=== PATIENT | female | born 1945 | race Caucasian/White ===

== ENCOUNTER 2018-04-19 09:46 | Outpatient (CLI) | payer OTHER, SELFPAY ==
[2018-04-19] VITALS (7 sets, daily range): BP systolic 114–153; BP diastolic 64–98; PULSE 86–97; RESP 17–20; TEMP 36.7; O2SAT 94–98
--- NOTE | 2018-04-19 09:49 | DI.RAD.S_ITS ---
PROCEDURE: PAIN L INTERLAMINAR/CAUDAL INJ INDICATIONS: Lumbar stenosis FINDINGS: Fluoroscopic spot filming was performed to verify placement of spinal needles at the left L4-5 posterior epidural level(s), as labeled on the films. Appropriate location(s) of the needle tip(s) was confirmed by injection of iodinated contrast. IMPRESSION: Left posterior paramedian epidural injection positioning, for subsequent epidural steroid injection. Dictated by: Pranav Gongora M.D. on 04/19/2018 at 13:31 Approved by: Parnav Gongora M.D. on 04/19/2018 at 13:32
--- NOTE | 2018-04-19 10:27 | P.PCN_ITS ---
Procedures Date/Time Date of procedure: 04/19/18 Time of procedure: 11:02 General Procedure description: PROVIDER: Issa Crandall DO Operative Note PREOP DIAGNOSIS 1. HNP WITH RADICULAR FEATURES, 2. MULTILEVEL CENTRAL STENOSIS, POST OP DIAGNOSIS 1. HNP WITH RADICULAR FEATURES, 2. MULTILEVEL CENTRAL STENOSIS PROCEDURES 1. FLUORSCOPICALLY GUIDED CONTRAST CONTROLLED INTERLAMINAR EPIDURAL STEROID INJECTION -L4/5 PHYSICIAN: Issa Crandall DO INDICATIONs: Mary Ellen is referred by for treatment of Bilateral Foraminal Stenosis R> L LE symptoms. FINDINGS Multilevel Central Spinal Stenosis with Nerve Root Compression DESCRIPTION OF PROCEDURE Fluoroscopically guided, contrast-controlled L4/5 translaminar epidural steroid injection. Following denial of allergy and review of potential side effects and complications, including, but not necessarily limited to, infection, allergic reaction, local tissue breakdown, temporary as well as permanent nerve injury, paralysis, stroke and possible , the patient indicated that the patient understood and agreed to proceed. An informed consent document was signed by the patient, witnessed by a nurse, and placed in the patient's chart. Additionally, other treatment options including modalities, medications, and physical therapy were reviewed with the patient. Per the patient request, IV conscious sedation was administered via 5mg of Versed and 50mcg of Fentanyl to patient comfort. The patient's vital signs were monitored throughout the procedure by both the nurse and the physician without significant fluctuation. The patient remained conversant throughout the procedure. In the prone position, following sterile prep and drape of the lumbar region, the L4/5 translaminar space was identified fluoroscopically. The skin was anesthetized via a 25-gauge, 1.5-inch needle with 1% lidocaine solution. At this point, a 22-gauge short bevel spinal needle was atraumatically introduced and advanced under fluoroscopic guidance into the region of the L4/5 translaminar space. Depth was confirmed on lateral view. Radiological data, including multiple fluoroscopic views of the lumbar spine, reveal a spinal needle at the L4/5 translaminar space. Lateral views then show placement of the needle in the epidural space. Subsequent views show contrast material flowing superiorly and inferiorly in the epidural space. No vascular or intrathecal uptake is observed. At this point, using loss of resistance technique with saline and air, the epidural space was entered. This was confirmed following negative aspiration with injection of approximately 1.5 cc of Isovue 200, showing excellent epidural flow without vascular or intrathecal uptake. At this point, 1 cc of 1 % lidocaine solution combined with 3 cc or 20 mg of dexamethasone and 80mg Depo medrol was injected without incident. The patient was then transferred to the recovery area where they were observed for an appropriate period of time after the injection. The patient reported a VAS score of 6 prior to the procedure and a post-procedure VAS of 0. Total Fluoroscopy Time: 11.8 seconds Total Conscious Sedation Time: 24min POST OP INSTRUCTIONS The patient was provided a Pain Log to continue to record their response to the target-specific procedure prior to follow-up visit with their referring physician. Additionally, specific post-injection care instructions and a contact number to our office were provided if concerns arise regarding possible complications associated with the procedure are suspected. Issa Crandall DO Complications: none
[2018-04-19] MEDS: methylPREDNISolone acetate 80 MG/ML VIAL INJ (10:45)
[2018-04-19] MEDS: IOPAMIDOL 15 ML VIAL 3 ML INJ (10:45)
[2018-04-19] MEDS: MIDAZOLAM 5 MG/5 ML VIAL IV (10:45)
[2018-04-19] MEDS: BUPIVACAINE 0.25% (PF) 30 ML VIAL INJ (10:45)
[2018-04-19] MEDS: DEXAMETHASONE 10 MG/ML VIAL 20 MG INJ (10:45)
[2018-04-19] MEDS: fentaNYL 100 MCG/2 ML INJ 50 MCG IV (10:54)
== END 2018-04-19 11:40 ==
LOC: RAD 09:48
PROVIDERS: Visit Provider Physical Medicine & Rehabilitation
DX: M48.061 Spinal stenosis, lumbar region without neurogenic claudication (principal); M51.16 Intervertebral disc disorders with radiculopathy, lumbar region
CPT/HCPCS: 62323; 99152; J1040; J1100; J2250; J3010

== ENCOUNTER 2018-06-01 08:58 | Outpatient (CLI) | payer OTHER, SELFPAY ==
[2018-06-01] VITALS (8 sets, daily range): BP systolic 126–145; BP diastolic 62–97; PULSE 79–90; RESP 15–20; TEMP 36.2; O2SAT 95–97
--- NOTE | 2018-06-01 08:59 | DI.RAD.S_ITS ---
PROCEDURE: PAIN L/S TRANSFORAMINAL INJECT INDICATIONS: LUMBAR REGION SPINAL STENOSIS FINDINGS: Fluoroscopic spot filming was performed to verify placement of spinal needles at the left L5-S1 level(s), as labeled on the films. Appropriate location(s) of the needle tip(s) was confirmed by injection of iodinated contrast. IMPRESSION: Successful needle tip localization on the left L5-S1 for transforaminal epidural steroid injection. Dictated by: Pranav Gongora M.D. on 06/01/2018 at 13:32 Approved by: Pranav Gongora M.D. on 06/01/2018 at 13:32
--- NOTE | 2018-06-01 10:39 | P.PCN_ITS ---
Procedures Date/Time Date of procedure: 06/01/18 Time of procedure: 10:38 General Procedure description: PREOP DIAGNOSIS 1. FORMAINAL STENOSIS WITH LE SYMPTOMS POST OP DIAGNOSIS 1. FORMAINAL STENOSIS WITH LE SYMPTOMS PROCEDURES 1. FLUOROSCOPICALLY GUIDED CONTRAST CONTROLLED TRANSFORAMINAL EPIDURAL STEROID INJECTION - Left L5/S1 PHYSICIAN: Issa Crandall DO INDICATIONS: Mary Ellen is referred by Dr. Howard for treatment of Foraminal Stenosis with Right LE Symptoms FINDINGS Foraminal Nerve Root Compression secondary to disc disease and facet hypertrophy DESCRIPTION OF PROCEDURE: Following denial of allergy and review of potential side effects and complications, including, but not necessarily limited to, infection, allergic reaction, local tissue breakdown, stroke, temporary or permanent nerve injury, paralysis, and possible , the patient indicated that the patient understood and agreed to proceed. An informed consent document was signed by the patient, witnessed by a nurse, and placed in the patient's chart. Additionally, other treatment options including medications, modalities, and physical therapy were reviewed with the patient. After review of previous anaesthesic history and IV conscious sedation the patient was deemed safe to proceed with todays procedure with IV conscious sedation as ASA class II designation. Safety time-out was performed to confirm patient ID, procedure to be performed and site of procedure. IV sedation was accomplished with a combination of 3mg was administered by the RN after DO order , titrated to patient comfort during the course of the procedure while the patient remained responsive to all verbal commands In the prone position following sterile prep and drape of the lumbar region, the Left L5/S1 posterior neuroforamen was identified fluoroscopically. The skin was anesthetized via a 25-gauge 1.5-inch needle with 1% lidocaine solution. At this point, a 25-gauge 3.5-inch spinal needle was atraumatically introduced and advanced under fluoroscopic guidance through the posterior Left L5/S1 neuroforamen to approximately the anterior aspect of the canal. Depth was confirmed on lateral view. Following negative aspiration, injection of approximately 1.5 cc of Isovue 200 under live fluoroscopy in the AP view confirmed excellent flow along the nerve root, into the epidural space without vascular or intrathecal uptake observed Radiological data, including multiple fluoroscopic views of the lumbosacral spine, reveal a spinal needle at the Left L5/S1 posterior neuroforamen. Subsequent views show flow of contrast material flowing superiorly and inferiorly along the nerve root confirming epidural flow. Subsequently, a test dose of 1.5 cc of 1% lidocaine solution was administered and patient was observed for two minutes for signs or symptoms of complications , including abdominal pain, shortness of breath, bilateral upper or lower extremity weakness, nausea and vomiting, prior to steroid injection. At this point, a total of 3 cc or 20 mg of dexamethasone and 80mg Depo Medrol was injected without incident. The procedure tolerated the procedure well without signs or symptoms of complications prior to transfer to the recovery area continued monitoring without incident. The patient was then transferred to the recovery area where they were observed for an appropriate time after the injection. The patient reported a VAS score of 7 prior to the procedure and a post-procedure VAS of 0. Total Fluoroscopy Time: 20.9 seconds Total Conscious Sedation Time: 24min POST OP INSTRUCTIONS The patient was provided a Pain Log to continue to record their response to the target-specific procedure prior to follow-up visit with their referring physician. Additionally, specific post-injection care instructions and a contact number to our office were provided if concerns arise regarding possible complications associated with the procedure are suspected. Issa Crandall DO Complications: none
[2018-06-01] MEDS: MIDAZOLAM 5 MG/5 ML VIAL IV (10:56)
[2018-06-01] MEDS: methylPREDNISolone acetate 80 MG/ML VIAL INJ (10:57)
[2018-06-01] MEDS: IOPAMIDOL 15 ML VIAL 3 ML INJ (10:57)
[2018-06-01] MEDS: BUPIVACAINE 0.25% (PF) VIAL 2 ML INJ (10:57)
[2018-06-01] MEDS: DEXAMETHASONE 10 MG/ML VIAL 20 MG INJ (10:57)
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
== END 2018-06-01 12:17 ==
PROVIDERS: PCP Family Medicine; Visit Provider Physical Medicine & Rehabilitation
DX: M48.061 Spinal stenosis, lumbar region without neurogenic claudication (principal); M51.17 Intervertebral disc disorders with radiculopathy, lumbosacral region
CPT/HCPCS: 64483; 99152; J1040; J1100; J2250

== ENCOUNTER 2018-07-12 13:06 | Outpatient (CLI) | payer OTHER, SELFPAY ==
--- NOTE | 2018-07-12 13:07 | DI.RAD.S_ITS ---
PROCEDURE: PAIN L INTERLAMINAR/CAUDAL INJ INDICATIONS: spinal stenosis FINDINGS: Fluoroscopic spot filming was performed to verify placement of spinal needles at the L3 and L4 level(s), as labeled on the films. Appropriate location(s) of the needle tip(s) was confirmed by injection of iodinated contrast. IMPRESSION: Fluoroscopy for pain management. Dictated by: Teddy Boyle M.D. on 07/12/2018 at 16:16 Approved by: Teddy Boyle M.D. on 07/12/2018 at 16:17
[2018-07-12 13:35] VITALS: BP 170/97; PULSE 103; RESP 22; TEMP 36.7; O2SAT 96
--- NOTE | 2018-07-12 13:40 | PM.PROC.1 ---
Procedures Date/Time Date of procedure: 07/12/18 Time of procedure: 13:40 General Procedure description: POST OP DIAGNOSIS 1. HNP WITH RADICULAR FEATURES, 2. MULTILEVEL CENTRAL STENOSIS, PROCEDURES 1. FLUORSCOPICALLY GUIDED CONTRAST CONTROLLED INTERLAMINAR EPIDURAL STEROID INJECTION - L3/4 PHYSICIAN: DO CONCHA Addison Mary Ellen is referred by for treatment of Bilateral Foraminal Stenosis L>R LE symptoms. FINDINGS Multilevel Central Spinal Stenosis with Nerve Root Compression DESCRIPTION OF PROCEDURE Fluoroscopically guided, contrast-controlled L3/4 translaminar epidural steroid injection. Following denial of allergy and review of potential side effects and complications, including, but not necessarily limited to, infection, allergic reaction, local tissue breakdown, temporary as well as permanent nerve injury, paralysis, stroke and possible , the patient indicated that the patient understood and agreed to proceed. An informed consent document was signed by the patient, witnessed by a nurse, and placed in the patient's chart. Additionally, other treatment options including modalities, medications, and physical therapy were reviewed with the patient. After review of previous anaesthesic history and IV conscious sedation the patient was deemed safe to proceed with todays procedure with IV conscious sedation as ASA class II designation. Safety time-out was performed to confirm patient ID, procedure to be performed and site of procedure. IV sedation was deemed unnecessary and thus not administered by the RN to patient comfort during the course of the procedure while the patient remained responsive to all verbal commands. In the prone position, following sterile prep and drape of the lumbar region, the L3/4 translaminar space was identified fluoroscopically. The skin was anesthetized via a 25-gauge, 1.5-inch needle with 1% lidocaine solution. At this point, a 22-gauge short bevel spinal needle was atraumatically introduced and advanced under fluoroscopic guidance into the region of the L3/4 translaminar space. Depth was confirmed on lateral view. Radiological data, including multiple fluoroscopic views of the lumbar spine, reveal a spinal needle at the L3/4 translaminar space. Lateral views then show placement of the needle in the epidural space. Subsequent views show contrast material flowing superiorly and inferiorly in the epidural space. No vascular or intrathecal uptake is observed. At this point, using loss of resistance technique with saline and air, the epidural space was entered. This was confirmed following negative aspiration with injection of approximately 1.5 cc of Isovue 200, showing excellent epidural flow without vascular or intrathecal uptake. At this point, 1 cc of 1% lidocaine solution combined with 3 cc or 20 mg of dexamethasone and 80mg Depo medrol was injected without incident. The patient tolerated the procedure well without signs or symptoms of complications prior to transfer to the recovery area continued monitoring without incident. The patient was then transferred to the recovery area where they were observed for an appropriate period of time after the injection. The patient reported a VAS score of 6 prior to the procedure and a post-procedure VAS of 0. Total Fluoroscopy Time: 11.8 seconds Total Conscious Sedation Time: 0min POST OP INSTRUCTIONS The patient was provided a Pain Log to continue to record their response to the target-specific procedure prior to follow-up visit with their referring physician. Additionally, specific post-injection care instructions and a contact number to our office were provided if concerns arise regarding possible complications associated with the procedure are suspected. Issa Crandall DO
--- NOTE | 2018-07-12 13:43 | P.PCN_ITS ---
Procedures Date/Time Date of procedure: 07/12/18 Time of procedure: 13:40 General Procedure description: POST OP DIAGNOSIS 1. HNP WITH RADICULAR FEATURES, 2. MULTILEVEL CENTRAL STENOSIS, PROCEDURES 1. FLUORSCOPICALLY GUIDED CONTRAST CONTROLLED INTERLAMINAR EPIDURAL STEROID INJECTION - L3/4 PHYSICIAN: DO CONCHA Addison Mary Ellen is referred by for treatment of Bilateral Foraminal Stenosis L> R LE symptoms. FINDINGS Multilevel Central Spinal Stenosis with Nerve Root Compression DESCRIPTION OF PROCEDURE Fluoroscopically guided, contrast-controlled L3/4 translaminar epidural steroid injection. Following denial of allergy and review of potential side effects and complications, including, but not necessarily limited to, infection, allergic reaction, local tissue breakdown, temporary as well as permanent nerve injury, paralysis, stroke and possible , the patient indicated that the patient understood and agreed to proceed. An informed consent document was signed by the patient, witnessed by a nurse, and placed in the patient's chart. Additionally, other treatment options including modalities, medications, and physical therapy were reviewed with the patient. After review of previous anaesthesic history and IV conscious sedation the patient was deemed safe to proceed with todays procedure with IV conscious sedation as ASA class II designation. Safety time-out was performed to confirm patient ID, procedure to be performed and site of procedure. IV sedation was deemed unnecessary and thus not administered by the RN to patient comfort during the course of the procedure while the patient remained responsive to all verbal commands. In the prone position, following sterile prep and drape of the lumbar region, the L3/4 translaminar space was identified fluoroscopically. The skin was anesthetized via a 25-gauge, 1.5-inch needle with 1% lidocaine solution. At this point, a 22-gauge short bevel spinal needle was atraumatically introduced and advanced under fluoroscopic guidance into the region of the L3/4 translaminar space. Depth was confirmed on lateral view. Radiological data, including multiple fluoroscopic views of the lumbar spine, reveal a spinal needle at the L3/4 translaminar space. Lateral views then show placement of the needle in the epidural space. Subsequent views show contrast material flowing superiorly and inferiorly in the epidural space. No vascular or intrathecal uptake is observed. At this point, using loss of resistance technique with saline and air, the epidural space was entered. This was confirmed following negative aspiration with injection of approximately 1.5 cc of Isovue 200, showing excellent epidural flow without vascular or intrathecal uptake. At this point, 1 cc of 1 % lidocaine solution combined with 3 cc or 20 mg of dexamethasone and 80mg Depo medrol was injected without incident. The patient tolerated the procedure well without signs or symptoms of complications prior to transfer to the recovery area continued monitoring without incident. The patient was then transferred to the recovery area where they were observed for an appropriate period of time after the injection. The patient reported a VAS score of 6 prior to the procedure and a post- procedure VAS of 0. Total Fluoroscopy Time: 11.8 seconds Total Conscious Sedation Time: 0min POST OP INSTRUCTIONS The patient was provided a Pain Log to continue to record their response to the target-specific procedure prior to follow-up visit with their referring physician. Additionally, specific post-injection care instructions and a contact number to our office were provided if concerns arise regarding possible complications associated with the procedure are suspected. Issa Crandall DO
[2018-07-12 13:48] VITALS: BP 143/59; PULSE 103; RESP 16; O2SAT 93
[2018-07-12 13:51] VITALS: O2SAT 97
[2018-07-12 13:54] VITALS: BP 147/102; PULSE 89; RESP 18; O2SAT 96
[2018-07-12] MEDS: methylPREDNISolone acetate 80 MG/ML VIAL INJ (13:58)
[2018-07-12] MEDS: DEXAMETHASONE 10 MG/ML VIAL 20 MG INJ (13:58)
[2018-07-12] MEDS: IOPAMIDOL 15 ML VIAL 3 ML INJ (13:58)
[2018-07-12] MEDS: BUPIVACAINE 0.25% (PF) VIAL 2 ML INJ (13:58)
[2018-07-12 13:59] VITALS: BP 150/103; PULSE 92; RESP 18; O2SAT 97
[2018-07-12 14:05] VITALS: BP 142/87; PULSE 91; RESP 20; O2SAT 95
--- NOTE | 2018-07-13 13:23 | PC.NURSE ---
post follow up call made pt reports doing well and that her pain is relieved.
== END 2018-07-12 14:45 ==
PROVIDERS: PCP Family Medicine; Visit Provider Physical Medicine & Rehabilitation
DX: M51.16 Intervertebral disc disorders with radiculopathy, lumbar region (principal); M51.26 Other intervertebral disc displacement, lumbar region; M96.1 Postlaminectomy syndrome, not elsewhere classified; M48.061 Spinal stenosis, lumbar region without neurogenic claudication
CPT/HCPCS: 62323; J1040; J1100

== ENCOUNTER → 2018-09-16 08:53 | Outpatient (CLI) | payer OTHER, SELFPAY ==
--- NOTE | 2018-09-16 08:55 | DI.MRI.S_ITS ---
PROCEDURE: MR LUMBAR SPINE WO CON INDICATIONS: OTHER INTERVERTABRAL DISK DISPLACEMENT,LUMBAR REGION TECHNIQUE: Noncontrast sagittal T1 spin echo and T2 fast echo, sagittal STIR, axial T1 and T2 fast spin echo through the lumbar spine. In cases with scoliosis, additional coronal T2 fast spin echo may be performed. COMPARISON: [facility], MR, MR LUMBAR SPINE WO CON, 07/02/2017, 15:11. [facility], CR, XR LUMBAR SPINE WITH OBLIQUES, 09/16/2017, 11:55. FINDINGS: Image quality: Excellent. Alignment and Curvature: 5 lumbar type vertebral bodies are present by plain film. There is mild, grade 1 retrolisthesis of L1 on L2. Bone Marrow: Marrow is of normal overall signal. No acute vertebral body compression fractures. There is mild reactive signal within the endplates adjacent to the L1-L2, L2-L3, and L5-S1 intervertebral discs. Moderate reactive signal within the endplate adjacent to the L3-L4 and L4-L5 intervertebral discs. Spinal Cord: Conus medullaris terminates at the L1-L2 disc space level. Visualized cord demonstrates normal signal and size. Paraspinous Soft Tissues: No paravertebral masses. Bilateral renal cysts are present. L1-L2: Moderate disc height loss and desiccation. Moderate diffuse disc bulge with superimposed central disc extrusion which extends inferiorly within the anterior epidural space. There is also a superimposed left far lateral broad-based protrusion, as before Mild bilateral facet and ligamentum hypertrophy. Mild epidural lipomatosis. There is increased, moderate canal stenosis. No change in mild bilateral foraminal stenosis. L2-L3: Moderate disc desiccation. Mild disc height loss. Mild diffuse disc bulge with superimposed small broad-based left posterolateral protrusion. Mild bilateral facet and ligamentum flavum hypertrophy. Mild epidural lipomatosis. Mild canal stenosis. Mild left greater than right foraminal stenosis. No change. L3-L4: Severe disc height loss and desiccation. Moderate diffuse disc bulge/osteophyte. Moderate bilateral facet hypertrophy. There is increased, moderate to severe canal stenosis. There is no change in moderate bilateral foraminal stenosis. L4-L5: Severe disc height loss and desiccation. Mild diffuse disc bulge/osteophyte with superimposed right far lateral protrusion/osteophyte. Moderate facet and ligamentum flavum hypertrophy bilaterally. Moderate canal stenosis. Moderate bilateral foraminal stenosis. No change. L5-S1: Mild disc height loss and desiccation. Mild diffuse disc bulge. Moderate bilateral facet hypertrophy. Mild canal stenosis. Mild bilateral foraminal stenosis. No change. IMPRESSION: 1. Multilevel degenerative disc and facet disease, as well as ligamentum flavum hypertrophy and epidural lipomatosis. 2. Multilevel canal stenoses, worse at L1-L2 and L4-L5, where there is moderate canal stenosis, and at L3-L4, where there is moderate to severe canal stenosis. 3. Multilevel foraminal stenoses, worst at L3-L4 and L4-L5 bilaterally where there are moderate foraminal stenoses present. Dictated by: Ruby Workman M.D. on 09/16/2018 at 10:58 Approved by: Ruby Workman M.D. on 09/16/2018 at 11:04
== END ==
PROVIDERS: Family Provider Family Medicine; PCP Family Medicine; Visit Provider Physical Medicine & Rehabilitation
DX: M51.26 Other intervertebral disc displacement, lumbar region (principal); M51.36 Other intervertebral disc degeneration, lumbar region; M51.37 Other intervertebral disc degeneration, lumbosacral region; M48.061 Spinal stenosis, lumbar region without neurogenic claudication; M48.07 Spinal stenosis, lumbosacral region; E88.2 Lipomatosis, not elsewhere classified
CPT/HCPCS: 72148

== ENCOUNTER 2019-01-10 13:48 | Outpatient (CLI) | payer OTHER, SELFPAY ==
[2019-01-10] VITALS (9 sets, daily range): BP systolic 126–139; BP diastolic 71–94; PULSE 85–93; RESP 16–19; O2SAT 93–96
--- NOTE | 2019-01-10 13:48 | DI.RAD.S_ITS ---
PROCEDURE: PAIN L INTERLAMINAR/CAUDAL INJ INDICATIONS: L5-S1 tl GABBY FINDINGS: Fluoroscopic spot filming was performed to verify placement of spinal needles at the L5-S1 level(s), as labeled on the films. Appropriate location(s) of the needle tip(s) was confirmed by injection of iodinated contrast. Dictated by: Isaias Islas M.D. on 01/10/2019 at 16:08 Approved by: Isaias Islas M.D. on 01/10/2019 at 16:09
[2019-01-10] MEDS: MIDAZOLAM 5 MG/5 ML VIAL IV (14:37)
[2019-01-10] MEDS: IOPAMIDOL 15 ML VIAL 3 ML INJ (14:41)
[2019-01-10] MEDS: DEXAMETHASONE 10 MG/ML VIAL 20 MG INJ (14:41)
[2019-01-10] MEDS: BUPIVACAINE 0.25% (PF) VIAL 2 ML INJ (14:42)
--- NOTE | 2019-01-10 14:52 | P.PCN_ITS ---
Procedures Date/Time Date of procedure: 01/10/19 Time of procedure: 14:51 General Procedure description: PROVIDER: Issa Crandall DO Operative Note PREOP DIAGNOSIS 1. HNP WITH RADICULAR FEATURES, 2. MULTILEVEL CENTRAL STENOSIS, POST OP DIAGNOSIS 1. HNP WITH RADICULAR FEATURES, 2. MULTILEVEL CENTRAL STENOSIS, PROCEDURES 1. FLUORSCOPICALLY GUIDED CONTRAST CONTROLLED INTERLAMINAR EPIDURAL STEROID INJECTION - L5/S1 PHYSICIAN: Issa Crandall DO INDICATIONS Mary Ellen is referred by Dr. Howard for treatment of Bilateral Foraminal Stenosis L>R LE symptoms. FINDINGS Multilevel Central Spinal Stenosis with Nerve Root Compression DESCRIPTION OF PROCEDURE Fluoroscopically guided, contrast-controlled L5/S1 translaminar epidural steroid injection. Following denial of allergy and review of potential side effects and complications, including, but not necessarily limited to, infection, allergic reaction, local tissue breakdown, temporary as well as permanent nerve injury, paralysis, stroke and possible , the patient indicated that the patient understood and agreed to proceed. An informed consent document was signed by the patient, witnessed by a nurse, and placed in the patient's chart. Additionally, other treatment options including modalities, medications, and physical therapy were reviewed with the patient. After review of previous anaesthesic history and IV conscious sedation the patient was deemed safe to proceed with todays procedure with IV conscious sedation as ASA class II designation. Safety time-out was performed to confirm patient ID, procedure to be performed and site of procedure. IV sedation was accomplished with a combination of 3mg of Versed administered by the RN after DO order, titrated to patient comfort during the course of the procedure while the patient remained responsive to all verbal commands. In the prone position, following sterile prep and drape of the lumbar region, the L5/S1 translaminar space was identified fluoroscopically. The skin was anesthetized via a 25-gauge, 1.5-inch needle with 1% lidocaine solution. At this point, a 22-gauge short bevel spinal needle was atraumatically introduced and advanced under fluoroscopic guidance into the region of the L5/S1 burgos slaminar space. Depth was confirmed on lateral view. Radiological data, including multiple fluoroscopic views of the lumbar spine, reveal a spinal needle at the L5/S1 translaminar space. Lateral views then show placement of the needle in the epidural space. Subsequent views show contrast material flowing superiorly and inferiorly in the epidural space. No vascular or intrathecal uptake is observed. At this point, using loss of resistance technique with saline and air, the epidural space was entered. This was confirmed following negative aspiration with injection of approximately 1.5 cc of Isovue 200, showing excellent epidural flow without vascular or intrathecal uptake. At this point, 1 cc of 1% lidocaine solution combined with 2cc or 20mg of dexamethasone was injected without incident. The patent tolerated the procedure without signs of symptoms of complications prior to transfer to the recovery area for further monitoring. The patient was then transferred to the recovery area where they were observed for an appropriate period of time after the injection. The patient reported a VAS score of 6 prior to the procedure and a post-procedure VAS of 0. Total Fluoroscopy Time: 11.8 seconds Total Conscious Sedation Time: 24min POST OP INSTRUCTIONS The patient was provided a Pain Log to continue to record their response to the target-specific procedure prior to follow-up visit with their referring physician. Additionally, specific post-injection care instructions and a contact number to our office were provided if concerns arise regarding possible complications associated with the procedure are suspected. Issa Crandall DO Complications: none
--- NOTE | 2019-01-10 15:17 | PC.NURSE ---
Pt returned from post procedure via wheelchair awake and alert, able to move with standby assist to chair from w/c. Resumed monitoring from ANTONIO HASTINGS.
--- NOTE | 2019-01-11 15:35 | PC.NURSE ---
FOLLOW UP CALLED MADE. LEFT VOICE MSG WITH CLINIC NUMBER IN CASE OF QUESTIONS/CONCERNS.
== END 2019-01-10 15:13 ==
LOC: RAD 13:48
PROVIDERS: Family Provider Family Medicine; PCP Family Medicine; Visit Provider Physical Medicine & Rehabilitation
DX: M51.17 Intervertebral disc disorders with radiculopathy, lumbosacral region (principal); M48.07 Spinal stenosis, lumbosacral region; M48.061 Spinal stenosis, lumbar region without neurogenic claudication; M96.1 Postlaminectomy syndrome, not elsewhere classified
CPT/HCPCS: 62323; 99152; J1100; J2250

== ENCOUNTER → 2019-04-26 13:59 | Outpatient (CLI) | payer OTHER, SELFPAY ==
--- NOTE | 2019-04-26 14:04 | DI.RAD.S_ITS ---
PROCEDURE: XR LUMBAR SPINE MIN 4V INDICATIONS: Lumbar radiculopathy status post laminectomy TECHNIQUE: 5 views of the lumbar spine were acquired. COMPARISON: [facility] SHAUNA Quan, XR LUMBAR SPINE WITH OBLIQUES, 09/16/2017, 11:55. FINDINGS: Bones: No fracture or focal osseous destruction. Straightening of the normal lordotic curvature. Severe diffuse narrowing of lumbar disc spaces. Mild levocurvature as before Soft tissues: Overlying bowel gas pattern is normal. No suspicious soft tissue calcifications. Oblique images: No pars defects. IMPRESSION: Interval progression in diffuse lumbar spondylosis since 09/16/17. Multilevel facet arthropathy. Mild levocurvature as before Dictated by: Isaias Islas M.D. on 04/26/2019 at 16:45 Approved by: Isaisa Islas M.D. on 04/26/2019 at 16:47
== END ==
PROVIDERS: Family Provider Family Medicine; PCP Family Medicine; Visit Provider Physical Medicine & Rehabilitation
DX: M96.1 Postlaminectomy syndrome, not elsewhere classified (principal); M51.26 Other intervertebral disc displacement, lumbar region; M47.26 Other spondylosis with radiculopathy, lumbar region
CPT/HCPCS: 72110

== ENCOUNTER 2019-05-02 14:12 | Outpatient (CLI) | payer OTHER, SELFPAY ==
[2019-05-02] VITALS (7 sets, daily range): BP systolic 122–136; BP diastolic 32–81; PULSE 74–89; RESP 16–18; TEMP 36.6; O2SAT 92–100
--- NOTE | 2019-05-02 14:13 | DI.RAD.S_ITS ---
PROCEDURE: PAIN L/S TRANSFORAMINAL INJECT INDICATIONS: Left L1-2 transforaminal GABBY FINDINGS: Fluoroscopic spot filming was performed to verify placement of spinal needles at the T12-L1 level(s), as labeled on the films. Appropriate location(s) of the needle tip(s) was confirmed by injection of iodinated contrast. IMPRESSION: Fluoroscopy for pain management. Dictated by: Teddy Boyle M.D. on 05/05/2019 at 18:35 Approved by: Teddy Boyle M.D. on 05/05/2019 at 18:36
[2019-05-02] MEDS: fentaNYL 100 MCG/2 ML INJ 50 MCG IV (15:24)
[2019-05-02] MEDS: MIDAZOLAM 5 MG/5 ML VIAL IV (15:24)
[2019-05-02] MEDS: IOPAMIDOL 15 ML VIAL 3 ML INJ (15:29)
[2019-05-02] MEDS: BETAMETHASONE 30 MG/5 ML MDV 12 MG INJ (15:29)
[2019-05-02] MEDS: BUPIVACAINE 0.5% (PF) VIAL 2 ML INJ (15:30)
--- NOTE | 2019-05-02 15:32 | PC.NURSE ---
ASSISTING PT OFF TABLE AND TRANSPORTING TO POST PROC AREA IN STABLE CONDITION
--- NOTE | 2019-05-02 15:40 | P.PCN_ITS ---
Procedures Date/Time Date of procedure: 05/02/19 Time of procedure: 15:38 General Procedure description: Operative Note PREOP DIAGNOSIS 1. FORAMINAL STENOSIS WITH LE SYMPTOMS, POST OP DIAGNOSIS 1. FORAMINAL STENOSIS WITH LE SYMPTOMS, PROCEDURES 1. FLUOROSCOPICALLY GUIDED CONTRAST CONTROLLED TRANSFORAMINAL EPIDURAL STEROID INJECTION - LEFT L1/2 TFESI SURGEON: Isas Crandall, DO INDICATIONS Mary Ellen is referred by Dr. Howard for treatment of Foraminal Stenosis with left LE Symptoms FINDINGS Foraminal Nerve Root Compression secondary to disc disease and facet hypertrophy DESCRIPTION OF PROCEDURE Following review of allergy and review of potential side effects and complications, including, but not necessarily limited to, infection, allergic reaction, local tissue breakdown, stroke, temporary or permanent nerve injury, paralysis, and possible , the patient indicated that the patient understood and agreed to proceed. An informed consent document was signed by the patient, witnessed by a nurse, and placed in the patient's chart. Additionally, other treatment options including medications, modalities, and physical therapy were reviewed with the patient. After review of previous anaesthesic history and IV conscious sedation the patient was deemed safe to proceed with todays procedure with IV conscious sedation as ASA class II designation. Safety time-out was performed to confirm patient ID, procedure to be performed and site of procedure. IV sedation was accomplished with a combination of 5mg of Versed and 50mcg of Fentanyl was administered by the RN after DO order, titrated to patient comfort during the c ourse of the procedure while the patient remained responsive to all verbal commands In the prone position following sterile prep and drape of the lumbar region, the left L1/2 posterior neuroforamen was identified fluoroscopically. The skin was anesthetized via a 25-gauge 1.5-inch needle with 1% lidocaine solution. At this point, a 25-gauge 3.5-inch spinal needle was atraumatically introduced and advanced under fluoroscopic guidance through the posterior left L1/2 neuroforamen to approximately the anterior aspect of the canal. Depth was confirmed on lateral view. Following negative aspiration, injection of approximately 1.5 cc of Isovue 200 under live fluoroscopy in the AP view confirmed excellent flow along the nerve root, into the epidural space without vascular or intrathecal uptake observed Radiological data, including multiple fluoroscopic views of the lumbosacral spine, reveal a spinal needle at the left L1/2 posterior neuroforamen. Subsequent views show flow of contrast material flowing superiorly and inferiorly along the nerve root confirming epidural flow. Subsequently, a test dose of 1.5 cc of 1% lidocaine solution was administered and patient was observed for two minutes for signs or symptoms of complications, including abdominal pain, shortness of breath, bilateral upper or lower extremity weakness, nausea and vomiting, prior to steroid injection. At this point, a total of 3cc or 18mg of betamethasone was injected without incident. The patient tolerated the procedure well without signs or symptoms of complications prior to transfer to the recovery area continued monitoring without incident. The patient was then transferred to the recovery area where they were observed for an appropriate time after the injection. The patient reported a VAS score of 7 prior to the procedure and a post-procedure VAS of 0. Total Fluoroscopy Time: 24.2 seconds Total Conscious Sedation Time: 24min POST OP INSTRUCTIONS The patient was provided a Pain Log to continue to record their response to the target-specific procedure prior to follow-up visit with their referring physician. Additionally, specific post-injection care instructions and a contact number to our office were provided if concerns arise regarding possible complications associated with the procedure are suspected. Issa Crandall DO Complications: none Complications: none
--- NOTE | 2019-05-02 15:45 | PC.NURSE ---
Pt returned from procedure awake and alert, able to transfer from w/c to chair without difficulty and standby assist. Resumed monitoring from Ana HASTINGS.
== END 2019-05-02 15:58 ==
LOC: RAD 14:12
PROVIDERS: Family Provider Family Medicine; PCP Family Medicine; Visit Provider Physical Medicine & Rehabilitation
DX: M48.061 Spinal stenosis, lumbar region without neurogenic claudication (principal); M51.16 Intervertebral disc disorders with radiculopathy, lumbar region
CPT/HCPCS: 64479; 64483; 99152; J0702; J2250; J3010

== ENCOUNTER 2019-09-14 07:06 | Outpatient (CLI) | payer OTHER, SELFPAY ==
--- NOTE | 2019-09-14 07:07 | DI.RAD.S_ITS ---
PROCEDURE: PAIN L/S TRANSFORAMINAL INJECT INDICATIONS: SPINAL STENOSIS FINDINGS: Fluoroscopic spot filming was performed to verify placement of spinal needles at the L3-L4 level(s), as labeled on the films. Appropriate location(s) of the needle tip(s) was confirmed by injection of iodinated contrast. IMPRESSION: Fluoroscopy for pain management. Dictated by: Teddy Boyle M.D. on 09/14/2019 at 10:45 Approved by: Teddy Boyle M.D. on 09/14/2019 at 10:45
[2019-09-14 07:37] VITALS: BP 135/83; PULSE 83; RESP 18; TEMP 35.7; O2SAT 95
[2019-09-14 08:17] VITALS: BP 148/78; PULSE 70; RESP 16; O2SAT 94
[2019-09-14] MEDS: fentaNYL 100 MCG/2 ML INJ 50 MCG IV (08:19)
[2019-09-14] MEDS: MIDAZOLAM 5 MG/5 ML VIAL IV (08:19)
[2019-09-14 08:22] VITALS: BP 133/74; PULSE 80; RESP 16; O2SAT 95
[2019-09-14] MEDS: IOPAMIDOL 15 ML VIAL 3 ML INJ (08:24)
[2019-09-14] MEDS: DEXAMETHASONE 10 MG/ML VIAL 20 MG INJ (08:25)
[2019-09-14] MEDS: BUPIVACAINE 0.5% (PF) VIAL 2 ML INJ (08:25)
[2019-09-14] MEDS: BETAMETHASONE 30 MG/5 ML MDV 6 MG INJ (08:25)
[2019-09-14 08:27] VITALS: BP 136/81; PULSE 83; RESP 16; O2SAT 96
--- NOTE | 2019-09-14 08:29 | PC.NURSE ---
ASSISTING PT OFF TABLE AND TRANSPORTING TO POST PROC AREA IN STABLE CONDITION.
[2019-09-14 08:35] VITALS: BP 133/72; PULSE 82; RESP 16; O2SAT 96
[2019-09-14 08:40] VITALS: BP 128/76; PULSE 83; RESP 16; O2SAT 96
--- NOTE | 2019-09-14 08:41 | P.PCN_ITS ---
Procedures Date/Time Date of procedure: 09/14/19 Time of procedure: 08:41 General Procedure description: PROVIDER: Issa Crandall DO Operative Note PREOP DIAGNOSIS 1. FORAMINAL STENOSIS WITH LE SYMPTOMS, POST OP DIAGNOSIS 1. FORAMINAL STENOSIS WITH LE SYMPTOMS, PROCEDURES 1. FLUOROSCOPICALLY GUIDED CONTRAST CONTROLLED TRANSFORAMINAL EPIDURAL STEROID INJECTION - LEFT L3/4 TFESI SURGEON: Issa Crandall, DO INDICATIONS Mary Ellen is referred by Dr. Howard for treatment of Foraminal Stenosis with left LE Symptoms FINDINGS Foraminal Nerve Root Compression secondary to disc disease and facet hypertrophy DESCRIPTION OF PROCEDURE Following review of allergy and review of potential side effects and complications, including, but not necessarily limited to, infection, allergic reaction, local tissue breakdown, stroke, temporary or permanent nerve injury, paralysis, and possible , the patient indicated that the patient understood and agreed to proceed. An informed consent document was signed by the patient, witnessed by a nurse, and placed in the patient's chart. Additionally, other treatment options including medications, modalities, and physical therapy were reviewed with the patient. After review of previous anaesthesic history and IV conscious sedation the patient was deemed safe to proceed with todays procedure with IV conscious sedation as ASA class II designation. Safety time-out was performed to confirm patient ID, procedure to be performed and site of procedure. IV sedation was accomplished with a combination of 2mg of Versed and 50mcg of Fentanyl was administered by the RN after DO order, titrated to patient comfort during the course of the procedure while the patient remained responsive to all verbal commands In the prone position following sterile prep and drape of the lumbar region, the left L3/4 posterior neuroforamen was identified fluoroscopically. The skin was anesthetized via a 25-gauge 1.5-inch needle with 1% lidocaine solution. At this point, a 22-gauge 5-inch spinal needle was atraumatically introduced and advanced under fluoroscopic guidance through the posterior left L3/4 neuroforamen to approximately the anterior aspect of the canal. Depth was confirmed on lateral view. Following negative aspiration, injection of approximately 1.5 cc of Isovue 200 under live fluoroscopy in the AP view confirmed excellent flow along the nerve root, into the epidural space without v ascular or intrathecal uptake observed Radiological data, including multiple fluoroscopic views of the lumbosacral spine, reveal a spinal needle at the left L3/4 posterior neuroforamen. Subsequent views show flow of contrast material flowing superiorly and inferiorly along the nerve root confirming epidural flow. Subsequently, a test dose of 1.5 cc of 1% lidocaine solution was administered and patient was observed for two minutes for signs or symptoms of complications, including abdominal pain, shortness of breath, bilateral upper or lower extremity weakness, nausea and vomiting, prior to steroid injection. At this point, a total of 3cc or 20mg of dexamethasone and 6mg betamethasone was injected without incident. The patient tolerated the procedure well without signs or symptoms of complications prior to transfer to the recovery area continued monitoring without incident. The patient was then transferred to the recovery area where they were observed for an appropriate time after the injection. The patient reported a VAS score of 7 prior to the procedure and a post-procedure VAS of 0. Total Fluoroscopy Time: 24.2 seconds Total Conscious Sedation Time: 24min POST OP INSTRUCTIONS The patient was provided a Pain Log to continue to record their response to the target-specific procedure prior to follow-up visit with their referring physician. Additionally, specific post-injection care instructions and a contact number to our office were provided if concerns arise regarding possible complications associated with the procedure are suspected. Issa Crandall, Complications: none
== END 2019-09-14 09:10 | disposition home or self-care (01) ==
LOC: RAD 07:07
PROVIDERS: Family Provider Family Medicine; PCP Family Medicine; Visit Provider Physical Medicine & Rehabilitation
DX: M48.061 Spinal stenosis, lumbar region without neurogenic claudication (principal); M51.16 Intervertebral disc disorders with radiculopathy, lumbar region
CPT/HCPCS: 64483; 99152; J0702; J1100; J2250; J3010

== ENCOUNTER → 2020-12-02 09:10 | Outpatient (CLI) | payer OTHER, SELFPAY ==
--- NOTE | 2020-12-02 09:13 | DI.RAD.S_ITS ---
PROCEDURE: XR LUMBAR SPINE MIN 4V INDICATIONS: UPDATE IMAGING TECHNIQUE: 5 views of the lumbar spine were acquired, including bilateral oblique views. COMPARISON: [facility], CR, XR LUMBAR SPINE MIN 4V, 04/26/2019, 14:05. FINDINGS: Bones: 5 nonrib-bearing vertebrae are present. There is normal bony alignment. No vertebral body compression fractures. No suspicious bony lesions. The pattern of moderate to moderately severe degenerative disc disease at L1-L2, L3-L4 and L4-L5 is again noted without definite interval worsening from April of 2019. Facet osteoarthritis appears mildly more prominent from L3 inferiorly with reference to the prior study. Significant spinal and foraminal stenosis at the levels discussed above likely is present, and to a greater degree than in 2019, as a result. Soft tissues: Overlying bowel gas pattern is normal. No suspicious soft tissue calcifications. Oblique images: No pars defects. IMPRESSION: Worsening degenerative changes as discussed comprised of predominantly worsening facet osteoarthritis from L3 inferiorly. Degenerative disc disease appears stable over time with reference to the prior study from 2019 as noted above. Note is made of a spinal stimulator electrode plate and control device, partially visualized, with control device overlying the left iliac bone. Bilateral hip arthroplasty procedures have been performed. Dictated by: Pranav Gongora M.D. on 12/02/2020 at 9:54 Approved by: Pranav Gongora M.D. on 12/02/2020 at 9:57
== END ==
PROVIDERS: Family Provider Family Medicine; PCP Family Medicine; Referring Provider Physical Medicine & Rehabilitation; Visit Provider Physical Medicine & Rehabilitation
DX: M48.061 Spinal stenosis, lumbar region without neurogenic claudication (principal); M51.26 Other intervertebral disc displacement, lumbar region; M47.816 Spondylosis without myelopathy or radiculopathy, lumbar region; M51.36 Other intervertebral disc degeneration, lumbar region; M96.1 Postlaminectomy syndrome, not elsewhere classified; G45.9 Transient cerebral ischemic attack, unspecified; F06.4 Anxiety disorder due to known physiological condition; Z96.643 Presence of artificial hip joint, bilateral; Z96.82 Presence of neurostimulator; Z96.653 Presence of artificial knee joint, bilateral
CPT/HCPCS: 72110; 99215

== ENCOUNTER → 2021-02-10 12:56 | Outpatient (CLI) | payer OTHER, SELFPAY ==
[2021-02-10 17:56] LABS: COVID19 -Nasal RAPID Negative (Negative)
== END ==
PROVIDERS: Family Provider Family Medicine; PCP Family Medicine; Visit Provider Physical Medicine & Rehabilitation
DX: Z01.812 Encounter for preprocedural laboratory examination (principal); Z20.822 Contact with and (suspected) exposure to COVID-19
CPT/HCPCS: 87635; C9803

== ENCOUNTER 2021-02-11 11:48 | Outpatient (CLI) | payer OTHER, SELFPAY ==
[2021-02-11] VITALS (7 sets, daily range): BP systolic 113–128; BP diastolic 55–75; PULSE 87–92; RESP 14–19; TEMP 36.1; O2SAT 94–99
--- NOTE | 2021-02-11 11:53 | DI.RAD.S_ITS ---
PROCEDURE: PAIN L INTERLAMINAR/CAUDAL INJ INDICATIONS: SPONDYLOSIS COMPARISON: [facility], MR, MR LUMBAR SPINE WITHOUT CONTRAST, 01/13/2021, 13:12. [facility], CR, XR LUMBAR SPINE MIN 4V, 12/02/2020, 9:18. FINDINGS: Fluoroscopic spot filming was performed to verify placement of spinal needles at the L3-L4 level(s), as labeled on the films. Appropriate location(s) of the needle tip(s) was confirmed by injection of iodinated contrast. IMPRESSION: Fluoroscopy for pain management. Dictated by: Teddy Boyle M.D. on 02/11/2021 at 14:48 Approved by: Teddy Boyle M.D. on 02/11/2021 at 14:49
[2021-02-11] MEDS: MIDAZOLAM 5 MG/5 ML VIAL IV (13:42)
[2021-02-11] MEDS: BUPIVACAINE 0.25% (PF) VIAL 2 ML INJ (13:44)
[2021-02-11] MEDS: methylPREDNISolone acetate 80 MG/ML VIAL INJ (13:45)
[2021-02-11] MEDS: DEXAMETHASONE 10 MG/ML VIAL 20 MG INJ (13:45)
[2021-02-11] MEDS: fentaNYL 100 MCG/2 ML INJ 50 MCG IV (13:46)
[2021-02-11] MEDS: IOPAMIDOL 15 ML VIAL 3 ML INJ (13:47)
--- NOTE | 2021-02-11 13:56 | P.PCN_ITS ---
Date/Time/Diagnoses Date of procedure: 02/11/21 Time of procedure: 13:56 Pre-procedure diagnosis: 1. HNP WITH RADICULAR FEATURES, 2. MULTILEVEL CENTRAL STENOSIS, Post-procedure diagnosis: same Procedure Notes Procedure: 1. FLUOROSCOPICALLY GUIDED CONTRAST CONTROLLED INTERLAMINAR EPIDURAL STEROID INJECTION - L3/4 Indications: Mary Ellen is referred by Dr. Howard for treatment of Bilateral Foraminal Stenosis L>R LE symptoms. Physician: Issa Crandall Total Fluoroscopy time (seconds): 8 Total sedation minutes: 9 Complications: none Procedure in detail & Post-procedure care: FINDINGS Multilevel Central Spinal Stenosis with Nerve Root Compression DESCRIPTION OF PROCEDURE Fluoroscopically guided, contrast-controlled L3/4 translaminar epidural steroid injection. Following review of allergy and review of potential side effects and complications, including, but not necessarily limited to, infection, allergic reaction, local tissue breakdown, temporary as well as permanent nerve injury, paralysis, stroke and possible , the patient indicated that the patient understood and agreed to proceed. An informed consent document was signed by the patient, witnessed by a nurse, and placed in the patient's chart. Additionally, other treatment options including modalities, medications, and physical therapy were reviewed with the patient. After review of previous anaesthesic history and IV conscious sedation the patient was deemed safe to proceed with today?s procedure with IV conscious sedation as ASA class II designation. Safety time-out was performed to confirm patient ID, procedure to be performed and site of procedure. IV sedation was accomplished with a combination of 2mg of Versed and 50mcg of Fentanyl was administered by the RN after DO order, titrated to patient comfort during the course of the procedure while the patient remained responsive to all verbal commands. In the prone position, following sterile prep and drape of the lumbar region, the L3/4 translaminar space was identified fluoroscopically. The skin was anesthetized via a 25-gauge, 1.5-inch needle with 1% lidocaine solution. At this point, a 22-gauge short bevel spinal needle was atraumatically introduced and advanced under fluoroscopic guidance into the region of the L3/4 translaminar space. Depth was confirmed on lateral view. Radiological data, including multiple fluoroscopic views of the lumbar spine, reveal a spinal needle at the L3/4 translaminar space. Lateral views then show placement of the needle in the epidural space. Subsequent views show contrast material flowing superiorly and inferiorly in the epidural space. No vascular or intrathecal uptake is observed. At this point, using loss of resistance technique with saline and air, the epidural space was entered. This was confirmed following negative aspiration with injection of approximately 1.5 cc of Isovue 200, showing excellent epidural flow without vascular or intrathecal uptake. At this point, 1cc of 1% lidocaine solution combined with 3cc or 20mg of dexamethasone and 80mg of depo medrol was injected without incident. The patient tolerated the procedure well without signs or symptoms of complications prior to transfer to the recovery area continued monitoring without incident. The patient was then transferred to the recovery area where they were observed for an appropriate period of time after the injection. The patient reported a VAS score of 6 prior to the procedure and a post- procedure VAS of 0. POST OP INSTRUCTIONS The patient was provided a Pain Log to continue to record their response to the target-specific procedure prior to follow-up visit with their referring physician. Additionally, specific post-injection care instructions and a contact number to our office were provided if concerns arise regarding possible complications associated with the procedure are suspected.
== END 2021-02-11 14:10 | disposition home or self-care (01) ==
PROVIDERS: Family Provider Family Medicine; PCP Family Medicine; Referring Provider Physical Medicine & Rehabilitation; Visit Provider Physical Medicine & Rehabilitation
DX: M51.16 Intervertebral disc disorders with radiculopathy, lumbar region (principal); M48.061 Spinal stenosis, lumbar region without neurogenic claudication
CPT/HCPCS: 62323; J1040; J1100; J2250; J3010

== ENCOUNTER → 2021-05-15 13:47 | Outpatient (CLI) | payer OTHER, SELFPAY ==
[2021-05-15 14:31] LABS: COVID19 -Nasal RAPID Negative (Negative)
== END ==
PROVIDERS: Family Provider Family Medicine; PCP Family Medicine; Visit Provider Physician Assistant
DX: Z20.822 Contact with and (suspected) exposure to COVID-19 (principal)
CPT/HCPCS: 87635

== ENCOUNTER 2021-05-17 11:21 | Observation (INO) | payer OTHER, SELFPAY ==
[2021-05-08 13:44] VITALS: BMI 37.5
[2021-05-16] VITALS (9 sets, daily range): BP systolic 129–157; BP diastolic 61–97; PULSE 81–108; RESP 13–25; TEMP 36.1–37.2; O2SAT 94–100; BMI 37.5
[2021-05-16] MEDS: ACETAMINOPHEN 325 MG TABLET 975 MG PO (11:24)
[2021-05-16] MEDS: LACTATED RINGERS 1,000 ML 42 ML IV ×2 (11:25→17:10)
--- NOTE | 2021-05-16 11:48 | SUR.PREOP ---
Patient states that she did not sleep 'at all' last night. Drifting off during admission.
[2021-05-16] MEDS: MIDAZOLAM 2 MG/2 ML VIAL 1 MG IV ×2 (12:42→13:58)
--- NOTE | 2021-05-16 12:52 | SUR.PREOP ---
Sat dozing into the 80s and patient sleeping after 1 mg versed was given. Places on O2 at 2LNP, sat into the 90s
--- NOTE | 2021-05-16 13:05 | SUR.PREOP ---
Dozing intermittently, sat on 2LNP 97-99%
--- NOTE | 2021-05-16 13:35 | PM.PREOP ---
Pre-operative Note COVID-19 COVID-19 status: Negative Result date/Date tested (Pos, Neg/Pending): 05/16/21 Interval Note History & Physical reviewed/Exam performed by Physician: Yes Changes to H&P: No
[2021-05-16] MEDS: CEFAZOLIN 1 GM VIAL 2 GM IV ×2 (14:16→19:55)
--- NOTE | 2021-05-16 14:35 | SUR.OPER ---
Prone on spine table, head in foam head support, padded chest and pelvic supports, gel pad at knees, lower legs supported by pillows; nipples, genitalia and toes free of pressure, arms secured on foam padded arm boards at <90 degrees abduction. Tape over blanket at thigh secured to table.
[2021-05-16] MEDS: BUPIVACAINE LIPOSOME 266 MG/20 ML VIAL INJ (14:38)
[2021-05-16] MEDS: BUPIVACAINE 0.25% W/ EPI 30 ML VIAL 60 ML INJ (14:39)
--- NOTE | 2021-05-16 17:52 | DI.RAD.S_ITS ---
PROCEDURE: XR LUMBAR SPINE 2-3V INDICATIONS: 3-4, 4-5 TLIF TECHNIQUE: 2 intraoperative fluoroscopic views of the lumbar spine were acquired. COMPARISON: [facility], , XR LUMBAR SPINE MIN 4V, 12/02/2020, 9:18. FINDINGS: Intraoperative fluoroscopic images of lower lumbar spine shows posterior fusion hardware and intervertebral spacer placement at L3 through L5 levels. IMPRESSION: Fluoro guidance was provided intraoperatively for lower lumbar spine fusion. Dictated by: Santi Kelly M.D. on 05/16/2021 at 18:04 Approved by: Santi Kelly M.D. on 05/16/2021 at 18:05
--- NOTE | 2021-05-16 18:06 | P.OP_ITS ---
Operative Date/Time/Diagnoses Date of procedure: 05/16/21 Time of procedure: 14:00 Pre-op diagnosis: 1. L3-4, L4-5 spinal stenosis 2. Lumbar spondylosis with radiculopathy 3. Post laminectomy syndrome Post-op diagnosis: same Procedure & Clinicians Procedure: 1. L3-4, L4-5 Postero-lateral and posterior interbody fusion 2. L3-4, L4-5 interbody cage placement. 3. L3-4, L4-5 decompressive laminectomy with bilateral facetecomies 4. L3-4, L4-5 Posterior segmental instrumentation 5. [place] of bone marrow from iliac crest 6. Utilization of microsurgical technique and operating microscope Same procedure as scheduled: Yes Indications: Patient has been having chronic back pain and worsening lumbar radiculopathy. Patient failed multiple conservative management with worsening pain weakness and numbness in her lower extremity. Patient has been having difficulty performing activity of daily living. After discussing risks benefits of treatment options, patient elected proceed with surgery. Surgeon: Sascha Yusuf Numerical Control Machine Operator: Ion Lora Click Yes if Unassisted: No Anesthesia Type: General Operative Notes Closure Type: primary Specimen(s): none sent Prosthetic devices, grafts, tissues, transplants, or devices: Globus revolve screws, Rise cages Applied: catheter Estimated Blood Loss (mL): 200 Blood products transfused: none Procedure in detail: Patient was seen in the preoperative area. Risks and benefits of the surgery was discussed with the patient. Informed consent was obtained from the patient and placed in the chart. Surgical site was marked. Patient was taken to the operative room. General anesthesia was administered. Prophylactic antibiotic was given to the patient less than 30 min before the incision was made. Patient was placed into a prone position on the Elvis table. Patient's back was then prepped and draped in the sterile fashion. Time- out was performed at this time. Using AP and lateral C-arm imaging the interval between L3-4, L4-5 was identified and marked on patient's back. A 2 inch incision 2 in from midline was made on the right side first. The fascia was incised in line with skin incision. Globus MARS retractors was placed inside the incision and docked onto the L3 and L4 lamina. Using microsurgical technique and operating microscope, a L3 and L4 laminectomy and L3-4, L4-5 facetectomy was performed using a Kerrison rongeur. The disc space at L3-4, L4-5 was identified. And a total diskectomy was performed at L3-4, L4-5 level. The endplates were decorticated using a rasp and shaver. The total diskectomy and decortication was performed at L3-4, L4-5 level in order to to accomplish a L3-4, L4-5 fusion. The local bone from the laminectomy and facetectomy was saved for local bone grafting. After the total diskectomy and decortication was completed, Trifecta bone graft material was combined with local bone that was harvested earlier. At this time, a separate skin is incision was made over the iliac crest. A Jamshidi needle was inserted into the iliac crest through a separate skin incision. 5 cc of bone marrow aspiration was obtained through the separate skin incision using a Jamshidi needle from the iliac crest. The bone marrow aspiration was combined with local bone and the Trifecta bone grafting material. The bone grafting material was placed into the L3-4, L4-5 interbody space along with two cages, one expandable cage at each level. The cages were expanded to their maximum height using the torque limiting screwdriver. At this time a mirror image incision was made on the left side. The fascia was incised in line with the skin incision. Globus MARS retractor was inserted and docked onto the L3-4, L4-5 posterolateral gutter. Using the power drill, posterior-lateral decortication was performed at L3-4, L4-5 level until bleeding cortical bone was identified. The remaining bone grafting material was placed into the L3-4, L4-5 posterior lateral gutter he order to accomplish posterolateral fusion at the L3-4, L4-5 levels. Using the double C-arm technique, pedicle screws were placed into the L3, L4, L5 pedicles bilaterally. This was done by placing the Jamshidi needle into the pedicles, then placing the guidewires over the Jamshidi needle, and finally placing the cannulated screws over the guidewires bilaterally. After the pedicle screws were placed, 2 titanium rods was locked into the heads of the pedicle screws using locking caps and torque limiting screwdriver. Total 6 pedicles screws were placed. After all the hardware was placed, and confirmed with AP and lateral C-arm imaging, the wound was then irrigated with sterile normal saline and packed with Ray-Michelle gauze for 3 min to accomplish hemostasis. After the gauze was removed the deep fascia was closed with #1 Vicryl suture. The subcutaneous layer was closed with 2-0 Vicryl. The skin was closed with skin irving. Patient tolerated the procedure well. There were no complications. Complications: none Post-operative Condition: stable Disposition: PACU Plan for aftercare: Admit to inpatient hospital
--- NOTE | 2021-05-16 18:21 | SUR.PHASEI ---
Received to PACU after general anesthesia. Airway patent, self maintained. Pt requiring O2 for sats 85%. Placed on 100% NRB with sats up to 97%. Report received from DARLING Henriquez and Dr Barrera.
[2021-05-16] MEDS: HYDROMORPHONE 2 MG INJ IV ×2 (18:27→18:37)
[2021-05-16] MEDS: hydrOXYzine 50 MG/ML INJ 25 MG IM (18:32)
--- NOTE | 2021-05-16 18:52 | SUR.PHASEI ---
VS lost as monitor shut down. Please note that VS remained stable. O2 98% on 100% NRB. Changed to 4LNC with sats 96% when awake - down to 90% when asleep. Encouraged deep breathing.
--- NOTE | 2021-05-16 18:56 | SUR.PHASEI ---
Received report from previous Rn, Anu Arias. Patient in and out of sleep and restless, stating that she doesn't know what she wants. Patient c/o pain 5/10 and states that prior to surgery, she had 10/10 pain a daily basis. Patient remains on oxygen at 4 liters via nasal cannula and oxygen saturations fluctuate between 90% and 94%.
[2021-05-16] MEDS: SODIUM CHLORIDE 0.9% 1,000 ML 100 ML IV (19:49)
[2021-05-16] MEDS: OXYCODONE IR 5 MG TABLET 10 MG PO ×2 (19:56→22:26)
[2021-05-16] MEDS: hydrOXYzine pamoate 25 MG CAPSULE PO (23:49)
[2021-05-16] MEDS: clonazePAM 0.5 MG TABLET 2 MG PO (23:49)
[2021-05-17] VITALS (8 sets, daily range): BP systolic 125–145; BP diastolic 61–84; PULSE 94–110; RESP 15–22; TEMP 36.7–37.4; O2SAT 91–95
[2021-05-17] MEDS: OXYCODONE IR 5 MG TABLET 10 MG PO ×5 (01:27→20:37)
[2021-05-17] MEDS: HYDROMORPHONE 0.5 MG INJ IV ×5 (02:56→21:41)
[2021-05-17] MEDS: CEFAZOLIN 1 GM VIAL 2 GM IV (04:01)
[2021-05-17 06:35] LABS: Hematocrit 33.1 % (36-46); Hemoglobin 10.8 g/dL (12.0-16.0)
[2021-05-17] MEDS: hydrOXYzine pamoate 25 MG CAPSULE PO ×4 (07:47→21:42)
--- NOTE | 2021-05-17 07:47 | PC.NURSE ---
Addendum entered by Elin Marquez R.N. 05/17/21 14:35: Patient sitting up in bed on phone with . Asked patient if she is ready for pain medication, she would like to wait for an hour. Scheduled Miripex administered. Call light in reach, denies further needs at this time. Addendum entered by Elin Marquez R.N. 05/17/21 11:36: Patient had remained asleep most of the morning. Would check in and replace pulse ox-drops to 86% on room air, placed on 2L NC, remains 92%-94%. When awakened I asked patient how she was doing, she verbalized she was doing great and enjoying the sleep. Approximately an hour later the patient was awakened for afternoon vital signs and became tearful and anxious stating that her pain was not being controlled and she had not seen a doctor in days. Reoriented patient to situation and time. Patient given IV Dilaudid for 8 breakthrough pain. Aguirre remains intact, patient currently working with PT Original Note: Patient withering and c/o pain /, becoming tearful that she's not receiving adequate pain control. Patient reports only Dilaudid works. Dilaudid 0.5mg IV and hydroxyzine 25g administered. VSS. Continuous pulse ox remains on.
[2021-05-17] MEDS: LOSARTAN 50 MG TABLET 100 MG PO (08:06)
[2021-05-17] MEDS: PRAMIPEXOLE 1 MG TABLET PO ×3 (08:06→20:37)
[2021-05-17] MEDS: DOCUSATE 100 MG CAPSULE PO ×2 (08:06→20:37)
--- NOTE | 2021-05-17 08:20 | PM.PNPO.1 ---
Subjective Subjective Date Patient Seen: 05/17/21 Time Patient Seen: 08:20 Interval history: Patient states she is doing well overall and is in moderate discomfort at rest. At this time she rates her pain a 6/10 in intensity. Patient denies fever, chills, nausea, chest pain, or shortness of breath. She reports good sensation throughout the bilateral lower extremities. Exam Vital Signs (past 8 hours): - 05/17/21 03:02 05/17/21 07:45 05/17/21 08:06 Temperature 98.9 F 99.0 F Pulse Rate 110 H 98 H 98 H Respiratory Rate 18 16 Blood Pressure 145/76 H 128/84 128/84 Pulse Oximetry 92 93 Oxygen Delivery Method Room Air Oxygen Flow Rate 4 Narrative Exam Narrative: Pleasant 75-year-old female postop day 1 status post lumbar fusion. Patient is resting comfortably in bed, is in no acute distress, is alert and oriented x3. Skin is warm and dry, the skin surrounding the incision site is free of erythema, warmth, induration, or discharge. Dressing over the incision site is clean, dry, and intact. Good sensation appreciated throughout the bilateral lower extremities to light touch. Ankle dorsiflexion, plantar flexion, eversion, inversion performed bilaterally without difficulty or discomfort. Calves are soft and nontender, negative Homans sign. DP pulses palpated bilaterally and are even. No other signs of DVT appreciated. Const General: cooperative, healthy appearing and comfortable Resp Effort & Inspection: normal respiratory effort and able to speak in complete sentences Skin General: no rashes or lesions noted Objective Labs Result Diagrams: 05/17/21 06:15 Labs: Laboratory Results - last 24 hr 05/17/21 06:15 Hgb 10.8 L Hct 33.1 L PFSH Medical History Anxiety Arthritis Current every day smoker Depression HTN (hypertension) MICHELE (obstructive sleep apnea) Osteoarthritis RLS (restless legs syndrome) Surgical History H/O unilateral oophorectomy Hx of bilateral cataract extraction Hx of tonsillectomy S/P epidural steroid injection S/P hip replacement S/P knee replacement Social History household members: spouse Smoking Status: Current every day smoker alcohol intake: never Assessment & Plan Post-op Postoperative Procedures: Procedures Operation Date: 05/16/21 13:15 Actual Procedure Side Surgeon p L3-4, L4-5 TLIF Sascha Yusuf MD Postoperative day: 1 Postoperative status: doing well Postoperative plan: ambulate Postoperative plan narrative: Patient is to work on ambulation with the assistance of a front wheeled walker with physical therapy. Current pain management regimen is to be continued as it is adequately controlled the patient's pain level. Sequential compression devices are to be continued for DVT prophylaxis. Will continue to monitor the patient's progress with physical therapy as she has stated that she feels apprehensive about her mobility following surgery. Quality VTE Deep Vein Thrombosis/Pulmonary Embolism Present on Admission: No
--- NOTE | 2021-05-17 09:27 | PC.NURSE ---
found patient apneic during sleep desats to 86% placed on 2LNC sats 96%
--- NOTE | 2021-05-17 10:21 | OT.IPNOTE ---
Attempted to see pt for OT eval, pt states just wanting to sleep this morning and agreed to get up this afternoon. To check on pt later for OT eval.
--- NOTE | 2021-05-17 11:33 | PT.IIE ---
Current Diagnoses Anxiety disorder, unspecified (05/16/21) Restless legs syndrome (05/16/21) Spondylolisthesis, lumbar region (05/16/21) Radiculopathy, lumbar region (05/16/21) Postlaminectomy syndrome, not elsewhere classified (05/16/21) Surgery Performed Operation Date: 05/16/21 13:15 Actual Procedures p L3-4, L4-5 TLIF - Sascha uYsuf MD Medical History (Last Reviewed 05/17/21 @ 08:23 by Ion Lora PA-C) Anxiety Arthritis Current every day smoker Depression HTN (hypertension) MICHELE (obstructive sleep apnea) Osteoarthritis RLS (restless legs syndrome) Physical Therapy Inpatient Evaluation/Re-Eval M1 PT/OT-IP Prior Functional Status Start: 05/17/21 12:22 Freq: NEEDED Status: Active Protocol: Document 05/17/21 11:33 AB (Rec: 05/17/21 12:38 AB [email or web address]) Medical Review Prior Functional Status Medical History Reviewed Yes Communication able to make needs known Mobility and Gait able to make needs known Social History Household Members spouse Living Arrangements House Number of Floors (Floors) One Floor Number of Stairs To Enter/Railing? 4 steps R rail to enter Home Environment Standard Height Toilet,Walk in Shower Home Equipment Front Wheel Walker,Shower Seat with Backrest,Hand Held Shower,Grab Bars In Shower Additional Social History Comment pt stated that her spouse works as a surgery nurse at [employer] but will be off work for a few days to assist her at home. M2 PT-IP Current Condition Start: 05/17/21 12:22 Freq: NEEDED Status: Active Protocol: Document 05/17/21 11:33 AB (Rec: 05/17/21 12:38 AB [email or web address]) Physical Therapy Current Condition Current Condition Evaluation Date 05/17/21 Treatment Diagnosis s/p L3-4, L5-S1 fusion/lami; difficulty in walking Onset Date 05/16/21 Precautions Lumbar Precautions Log Roll,No Twisting,Limit Bending,Lifting Restriction of 10 lbs,Gait Belt above Incisional Area M3 PT-IP Subjective Start: 05/17/21 12:22 Freq: NEEDED Status: Active Protocol: Document 05/17/21 11:33 AB (Rec: 05/17/21 12:38 AB [email or web address]) Subjective Physical Therapy Visit Type Type Initial Evaluation Visit Start Time 11:33 Visit Stop Time 12:05 Total Visit Minutes 32 Number of SCIENTOLOGIST Visits 0 Physical Therapy Visit Comments Patient Comments checked on pt this morning and intiially refused and stated that she wants to sleep for a few more minutes. checked back on pt before lunch and agreed to get up. Therapy Pain Assessment Pain When Pain Assessed At Rest Pain Present Pain Present Pain Reported Location back Intensity 6 Scale Used increases to 8/10 Pain Management Techniques Apply Cold,Distraction, Modification of Treatment,Re- positioning,Timing of Activity with Medications M4 PT-IP Mobility and Gait Start: 05/17/21 12:22 Freq: NEEDED Status: Active Protocol: Document 05/17/21 11:33 AB (Rec: 05/17/21 12:38 [email or web address]) PT-Bed Mobility Assessment Rolling Type of Rolling Log Rolling Level of Assist Minimal Assistance Supine to Sit Supine to Sit Moderate Assistance Scooting Scooting to Edge of Bed Minimal Assistance PT-Transfer Assessment Sit to and From Stand Sit to and from Stand Moderate Assistance,1 Person Assistance,Use of Upper Extremities Equipment Transfer Assistive Device Gait Belt,Front Wheeled Walker Orthotic/Prosthetic Devices or Brace: No Transfers Transfer Destination Chair Transfer Technique ambulated Transfer Ability Level of Assist Moderate Assistance,1 Person Assistance,Use of Upper Extremities Comments Mobility Comments educated pt on back precautions and log roll bed mobility. pt completed log roll supine to sit mod A and max cues. pt was able to sit on EOB min A. pt can get anxious easily and can be impulsive. completed sit to stand mod A and cues and ambulated in room ~ 8 ft using FWW mod A and cues. presents with very guarded steps with decrease LE elevation. pt agreed to sit up on chair. positione don chair. call light and table placed within reach. Gait Assessment Gait Gait Assistance Required: Moderate Assistance,1 Person Assist Distance (Feet) 8 Able to Maintain Weight Bearing Status Yes During Gait Assistive Devices Assistive Device Gait Belt,Front Wheeled Walker Orthotic/Prosthetic Devices or Brace: No Gait Deviations General Gait Pattern Decreased Stride Length, Decreased Feet Clearance,Step- to Gait Factors Limiting Gait Function Factors Limiting Gait Function Decreased Activity Tolerance, Decreased Strength,Difficulty Following Directions,Limited Range of Motion,Pain,Poor Balance,Poor Safety Awareness PT-Balance Assessment Sitting Balance and Reactions Static Sitting Balance Ability Good Dynamic Sitting Balance Ability Fair Standing Balance and Reactions Static Standing Balance Ability Fair Dynamic Standing Balance Ability Poor Device Used FWW M5 PT-IP Objective Assessments Start: 05/17/21 12:22 Freq: NEEDED Status: Active Protocol: Document 05/17/21 11:33 AB (Rec: 05/17/21 12:38 AB [email or web address]) Orientation Orientation/Cognition Level of Alertness Alert Orientation Name,Place,Situation Safety Awareness Decreased Safety Awareness Memory Description Short Term Impaired Gross Range of Motion Lower Extremity ROM Assessment Within Functional Limits Strength Lower Extremity Strength Assessment Bilaterally Impaired Hip 3+/5 Knee 4-/5 Coordination Assessment Gross Coordination Gross Coordination WNL Sensation Assessment Sensation Gross Sensation WNL Muscle Tone Muscle Tone WNL Yes M6 PT-IP Treatment Start: 05/17/21 12:22 Freq: NEEDED Status: Active Protocol: Document 05/17/21 11:33 AB (Rec: 05/17/21 12:38 AB [email or web address]) Physical Therapy Treatment Education Education Provided Precautions,Weight Bearing Status,Post-Op Packet,Safety M7 PT-IP Assessment and Plan Start: 05/17/21 12:22 Freq: NEEDED Status: Active Protocol: Document 05/17/21 11:33 AB (Rec: 05/17/21 12:38 AB [email or web address]) PT Summary Assessment and Plan Potential Rehabilitation Potential Good Status of Condition at Evaluation Evolving Summary Impairments Pain,ROM,Strength,Balance, Coordination,Sensation,Tone, Cognition,Bed Mobility, Transfers,Gait,Activity Tolerance Assessment Summary pt requiring mod A for mobility and max cues. pt easily gets anxious and can be impulsive. c/o increase low back pain. pt plans to go home and spouse to assist her. will conitnue to assess pt's progress and will conduct caregiver training when appropriate as well as stair climbing training. Goals Bed Mobility Goal Standby Assistance Transfer Goal Standby Assistance,Front Wheeled Walker Gait Goal Standby Assistance,Front Wheel Walker Gait Distance 150 Other Goals up/down 4 steps R rail ascending SBA Days to Meet Goals 5 Frequency of Treatment Frequency Of Treatment Twice a Day Treatment Plan Physical Therapy Treatment Plan Bed Mobility Training,Transfer Training,Gait Training, Therapeutic Exercise,Balance Retraining,Post Op Education, Discharge Planning,Hot or Cold Pack,Neuromuscular Re-ed, Coordination Retraining,Manual Therapy Precautions Lumbar Precautions Log Roll,No Twisting,Limit Bending,Lifting Restriction of 10 lbs,Gait Belt above Incisional Area Recommendations To Nursing Amount of Assist Needed 1 Person Assist Discharge Recommendations PT Discharge Recommendations Home with 24/ Assist Available,Home Health Transportation Needs at Discharge Private Vehicle
--- NOTE | 2021-05-17 12:46 | CM.DANOTE ---
Addendum entered by Isabela Gillis R.N. 05/18/21 13:50: Spoke to [facility] and [facility] could accept pt. if [facility] authorized the patient. I heard from Kylee at [facility] and she authorized SNF for [facility] for today. [facility] called me after that and said they had a nurse call off and she can't take pt. today but can for tomorrow at 10ish. [facility] aware that patient will be leaving around 10 tomorrow and will be OBS until that time. PASSAR completed. Addendum entered by Jumana Holloway R.N. 05/17/21 14:58: Spoke to Physical Therapist, Alison, who is recommending residential because is not home all of the time. Let her know that [facility] may possibly not cover, as this was an elected surgery. P.T. note indicates one person transfer. Let patient know this, but she is requesting that we attempt the process, and try for residential. She has no preference on facilities. Went ahead and left a message with [facility] at [facility] to review. Spoke to [facility] rn case mgr, Grady. She indicated that she would need to run this by their physician, since this is an elected surgery. She also indicated that they may be able to make patient inpatient based on clinical review. Went ahead and faxed her over today's P.t. note, and progress note, along with med sheet, since patient is on IV Dilaudid. At this point, is it unclear if [facility] will authorize, and there is a message out to [facility] [facility] [facility] as well. She will work again with P.T, and see how she does. Original Note: DCP: Case received, EMR reviewed and met with patient. Introduced self and role. Was able to obtain information regarding patient's baseline activity status prior to hospitalization. DCP assessment completed with information currently available. Patient is a 75 year old female who admitted yesterday morning to the care of the orthopedic team. PCP: Dr. Howard. Payer: confirmed: [facility]. Patient came to the hospital via private vehicle for a surgical procedure. She had L3-4, 4-5, posteo-lateral/posterior interbody fusion. Patient has chronic history of back pain. Met with patient in her room. She is alert and oriented, pleasant. She was sitting up in her chair. She confirmed that she resides in [place] with her spouse, Hua. She indicated that he will be able to assist her when she goes home. Confirmed that patient is independent at her baseline, and has been able to drive short distances. She denied using any DME supplies prior to surgery. P: DCP to continue to follow. She will continue to work with P.T. After consulting with suri Lemon, patient could potentially go home tomorrow. Jumana Holloway RN/Authorization Rep
--- NOTE | 2021-05-17 12:55 | OT.IP.EVAL ---
Current Diagnoses Anxiety disorder, unspecified (05/16/21) Restless legs syndrome (05/16/21) Spondylolisthesis, lumbar region (05/16/21) Radiculopathy, lumbar region (05/16/21) Postlaminectomy syndrome, not elsewhere classified (05/16/21) Surgery Performed Operation Date: 05/16/21 13:15 Actual Procedures p L3-4, L4-5 TLIF - Sascha Yusuf MD Past Medical History (Last Reviewed 05/17/21 @ 08:23 by Ion Lora PA-C) Anxiety Arthritis Current every day smoker Depression H/O unilateral oophorectomy HTN (hypertension) Hx of bilateral cataract extraction Hx of tonsillectomy MICHELE (obstructive sleep apnea) Osteoarthritis RLS (restless legs syndrome) S/P epidural steroid injection S/P hip replacement S/P knee replacement Surgical History (Last Reviewed 05/17/21 @ 08:23 by Ion Lora PA-C) H/O unilateral oophorectomy Hx of bilateral cataract extraction Hx of tonsillectomy S/P epidural steroid injection S/P hip replacement S/P knee replacement Occupational Therapy Inpatient Evaluation/Re-Eval M1 PT/OT-IP Prior Functional Status Start: 05/17/21 12:22 Freq: NEEDED Status: Active Protocol: Document 05/17/21 14:27 [facility] (Rec: 05/17/21 14:51 [facility] [id number]) Medical Review Prior Functional Status Medical History Reviewed Yes Communication able to make needs known Mobility and Gait Pt states did not use a device , but only able to walk 3 steps due to her pain. Activities of Daily Living and IADL's Pt needing increased time to do all her ADL and IADl needs. Social History Household Members spouse Living Arrangements House Number of Floors (Floors) One Floor Number of Stairs To Enter/Railing? 4 steps R rail to enter Home Environment Standard Height Toilet,Walk in Shower Home Equipment Front Wheel Walker,Shower Seat with Backrest,Hand Held Shower,Grab Bars In Shower Additional Social History Comment pt stated that her spouse works as a surgery nurse at [employer] but will be off work for a few days to assist her at home. Per pt when Ot evaled pt, pt states her could be home for 1-2 weeks to assist. M2 OT-IP Current Condition Start: 05/17/21 14:27 Freq: Status: Active Protocol: Document 05/17/21 14:27 [facility] (Rec: 05/17/21 14:51 [facility] [id number]) Occupational Therapy Current Condition Current Condition Evaluation Date 05/17/21 Treatment Diagnosis S/p L3-4, L4-5 TLIF, decreased mobility Diagnosis Onset Date 05/16/21 Post Operative Precautions Lumbar Precautions Log Roll,No Twisting,Limit Bending,Lifting Restriction of 10 lbs,Gait Belt above Incisional Area M3 OT- IP Subjective and Pain Start: 05/17/21 14:27 Freq: Status: Active Protocol: Document 05/17/21 14:27 [facility] (Rec: 05/17/21 14:51 [facility] [id number]) OT- Subjective Occupational Therapy Visit Type Type Initial Evaluation Visit Start Time 12:55 Visit Stop Time 13:16 Total Visit Minutes 21 Occupational Therapy Visit Comments Patient Comments Pt agreed to get up for OT eval and then requesting to get back to bed. Patient/Caregiver Goals TO go home. OT Pain Assessment Pain When Pain Assessed During Mobility Pain Present Pain Present Pain Reported Location back Intensity 5 Scale Used Numeric (0 - 10) M4 OT- IP ADL's Start: 05/17/21 14:27 Freq: Status: Active Protocol: Document 05/17/21 14:27 [facility] (Rec: 05/17/21 14:51 [facility] [id number]) OT DPR-[id number] Comments OT Self-Feeding Comments NOt at meal time. OT ADL-Grooming Comments OT Grooming Comments Pt not wanting to do. OT ADL-Oral Care Comments Oral Care Comments Pt refused. Able to educate to pt best to spit into a cup versus hinge at her hips to safely follow her back precautions. OT ADL-Dressing General Eval Lower Body Dressing Ability Maximum Assistance Comments OT Dressing Comments Pt not wanting to practice or use of LB dressing equipment at this time and insists that her will be assisting her for all her needs. OT ADL-Toileting Comments OT Toileting Comments Pt did not perform. Pt will needing to have assist to wipe as prior pt states having difficulty. Spoke on toilet paper aid, bidet, or that her will have to assist. OT ADL-Bathing Comments OT Bathing Comments Pt too tired to try. M5 OT- IP IADL's Start: 05/17/21 14:27 Freq: Status: Active Protocol: Document 05/17/21 14:27 [facility] (Rec: 05/17/21 14:51 [facility] [id number]) OT-Instrumental Activities of Daily Living Home Safety Awareness Awareness of Need for Assistance at Home Good Awareness Medication Management Medication Management Comments Pt states her will assist her with all her needs at home initially for 1-2 weeks. Money Management Money Management Comments Pt states her will assist her with all her needs at home initially for 1-2 weeks. Meal Preparation Meal Preparation Comments Pt states her will assist her with all her needs at home initially for 1-2 weeks. Customer Equipment Engineer Customer Equipment Engineer Comments Pt states her will assist her with all her needs at home initially for 1-2 weeks. M6 OT- IP Functional Cognition Start: 05/17/21 14:27 Freq: Status: Active Protocol: Document 05/17/21 14:27 [facility] (Rec: 05/17/21 14:51 [facility] [id number]) Cognitive Factors Limiting Selfcare Function Cognitive Ability Level of Alertness Alert Patient Orientation Name,Place,Situation Attention Span Ability Capable of Focused Attention, Capable of Sustained Attention Ability to Follow Commands Able to Follow One Step Commands Safety Awareness Decreased Ability to Apply Precautions,Underestimates Need for Assistance Cognitive Comments Cognitive Assessment Comments Pt a little groggy and needing cues to follow safety awareness for log rolling, and FWW safety. Pt also needing reminder to incorporate her back precaution during movement. OT- Vision and Hearing OT- Hearing Assessment OT- Hearing Assessment WFL M7 OT- IP Mobility and Balance Start: 05/17/21 14:27 Freq: Status: Active Protocol: Document 05/17/21 14:27 [facility] (Rec: 05/17/21 14:51 [facility] [id number]) OT- Bed Mobility Assessment Sit to Supine Sit to Supine Assist Minimal Assistance Scooting Scooting to Edge of Bed Standby Assistance OT-Transfer Assessment Sit to and From Stand Sit to and from Stand Moderate Assistance Transfers Transfer Ability Minimal Assistance Technique Transfer Destination Bed,Chair Transfer Technique Stand Step Pivot Devices Transfer Assistive Devices Gait Belt,Front Wheeled Walker Comments Mobility Comments MODA to stand to FWW and heavy use of her arms on the handles on the FWW. VC to keep the FWW close to her. Pt able to walk from the recliner to around the other side of the bed. OT- Balance Assessment Sitting Balance and Reactions Static Sitting Balance Ability Good Dynamic Sitting Balance Ability Fair Standing Balance and Reactions Static Standing Balance Ability Fair M8 OT- IP Objective Assessments Start: 05/17/21 14:27 Freq: Status: Active Protocol: Document 05/17/21 14:27 [facility] (Rec: 05/17/21 14:51 [facility] [id number]) OT Gross Range of Motion Upper Extremity Range of Motion Assessment Within Functional Limits OT Strength Upper Extremity Strength Assessment Within Functional Limits M9 OT- IP Assessment and Plan Start: 05/17/21 14:27 Freq: Status: Active Protocol: Document 05/17/21 14:27 [facility] (Rec: 05/17/21 14:51 [facility] [id number]) OT Summary Assessment and Plan Potential Rehabilitation Potential Good Analytic Complexity at Evaluation Low Summary OT Impairments Pain,Strength,Balance, Functional Cognition, Functional Mobility,Grooming, Dressing,Toileting,Bathing, Toilet Transfers,Shower Transfers,Activity Tolerance Progress Towards Goals Slow Progress due to Pain,Slow Progress due to Activity Tolerance,Slow Progress due to Cognition Assessment Summary Pt low complexity and main barriers are steps, having difficulty with transitions of sit to stand, and bed mobility needs. Pt will also be needing assist for all ADL needs. Pt states she has a supportive that will take off 1-2 weeks to be able to asisst her. Pt would benefit from a BSC at home. Pending caregiver training most likely home versus possible SNF. Goals Grooming Goal Independent Dressing Goal Independent Toileting Goal Independent Bathing Goal Independent Toilet Transfer Goal Independent Shower Transfer Goal Independent Patient/Caregiver Education Goal Demonstrate Post-Op Precautions,Caregiver Independent Assisting Patient Days to Meet Goals 5 Frequency of Treatment Frequency Of Treatment Once a Day Treatment Plan OT Treatment Plan ADL Training,Functional Cognition Training,Functional Mobility,Patient/Family Education,Discharge Planning Discharge Recommendations OT Discharge Recommendations Home vs SNF Other Discharge Recommendations Pending caregiver training home with 24/ asisst versus short skilled rehab. Transportation Needs at Discharge Private Vehicle,Wheelchair/ Cabulance
--- NOTE | 2021-05-17 13:55 | PT.IPTN ---
Current Diagnoses Anxiety disorder, unspecified (05/16/21) Restless legs syndrome (05/16/21) Spondylolisthesis, lumbar region (05/16/21) Radiculopathy, lumbar region (05/16/21) Postlaminectomy syndrome, not elsewhere classified (05/16/21) Surgery Performed Operation Date: 05/16/21 13:15 Actual Procedures p L3-4, L4-5 TLIF - Sascha Yusuf MD Physical Therapy Treatment Note M2 PT-IP Current Condition Start: 05/17/21 12:22 Freq: NEEDED Status: Active Protocol: Document 05/17/21 11:33 AB (Rec: 05/17/21 12:38 AB [email or web address]) Physical Therapy Current Condition Current Condition Evaluation Date 05/17/21 Treatment Diagnosis s/p L3-4, L5-S1 fusion/lami; difficulty in walking Onset Date 05/16/21 Precautions Lumbar Precautions Log Roll,No Twisting,Limit Bending,Lifting Restriction of 10 lbs,Gait Belt above Incisional Area M3 PT-IP Subjective Start: 05/17/21 12:22 Freq: NEEDED Status: Active Protocol: Document 05/17/21 13:55 AB (Rec: 05/17/21 15:14 AB [email or web address]) Subjective Physical Therapy Visit Type Type Treatment Note Visit Start Time 13:55 Visit Stop Time 14:15 Total Visit Minutes 20 Number of INSPECTOR FINAL ASSEMBLY CONVEYOR LINE Visits 0 Physical Therapy Visit Comments Patient Comments agreed to do PT Therapy Pain Assessment Pain When Pain Assessed At Rest Pain Present Pain Present Pain Reported Location back Intensity 6 Pain Behaviors Guarding,Holding Area,Moaning, Restlessness,Wincing Pain Management Techniques Distraction,Modification of Treatment,Re-positioning, Timing of Activity with Medications M4 PT-IP Mobility and Gait Start: 05/17/21 12:22 Freq: NEEDED Status: Active Protocol: Document 05/17/21 13:55 AB (Rec: 05/17/21 15:14 AB [id number]) PT-Bed Mobility Assessment Rolling Type of Rolling Log Rolling Level of Assist Moderate Assistance Supine to Sit Supine to Sit Maximum Assistance,1 Person Assistance,Bedrails Sit to Supine Sit to Supine Moderate Assistance,1 Person Assistance,Bedrails PT-Transfer Assessment Sit to and From Stand Sit to and from Stand 1 Person Assistance,Use of Upper Extremities Equipment Transfer Assistive Device Gait Belt,Front Wheeled Walker Orthotic/Prosthetic Devices or Brace: No Comments Mobility Comments pt supine in bed and is very restless. agreed to do PT. completed supine to sit max A and max cues for log roll. pt used bed rail to assist. pt moaning in pain and tends to close her eyes during mobility . pt was able to sit on EOB min A. completed sit to stand max A and max cues. pt required repeated cues for proper techniques but is impulsive affecting safety awareness. pt ambulated ~ 10 ft using FWW mod A x 2 and max cues and stated that she has to sit down due to c/o increase pain. presents with very unsteady gait with shuffling gait. pt requested to go back to bed. completed sit to supine mod A and cues. positioned pt in bed. call light and table placed within reach. informed pt regarding current level of mobility and at this time will require SNF rehab and pt agreed. also informed PT that pt's spouse will only be off work for just a couple of days. informed patient case coordinator regarding SNF rehab recommendation at this time. Gait Assessment Gait Gait Assistance Required: Moderate Assistance,Maximum Assistance,2 Person Assist Distance (Feet) 10 Able to Maintain Weight Bearing Status Yes During Gait Assistive Devices Assistive Device Gait Belt,Front Wheeled Walker Orthotic/Prosthetic Devices or Brace: No Gait Deviations General Gait Pattern Ataxic,Decreased Stride Length ,Decreased Feet Clearance,Step -to Gait Factors Limiting Gait Function Factors Limiting Gait Function Decreased Activity Tolerance, Decreased Strength,Difficulty Following Directions,Limited Range of Motion,Pain,Poor Balance,Poor Safety Awareness M5 PT-IP Objective Assessments Start: 05/17/21 12:22 Freq: NEEDED Status: Active Protocol: Document 05/17/21 11:33 AB (Rec: 05/17/21 12:38 AB [id number]) Orientation Orientation/Cognition Level of Alertness Alert Orientation Name,Place,Situation Safety Awareness Decreased Safety Awareness Memory Description Short Term Impaired Gross Range of Motion Lower Extremity ROM Assessment Within Functional Limits Strength Lower Extremity Strength Assessment Bilaterally Impaired Hip 3+/5 Knee 4-/5 Coordination Assessment Gross Coordination Gross Coordination WNL Sensation Assessment Sensation Gross Sensation WNL Muscle Tone Muscle Tone WNL Yes M6 PT-IP Treatment Start: 05/17/21 12:22 Freq: NEEDED Status: Active Protocol: Document 05/17/21 13:55 AB (Rec: 05/17/21 15:14 AB [email or web address]) Physical Therapy Treatment Education Education Provided Precautions,Safety M7 PT-IP Assessment and Plan Start: 05/17/21 12:22 Freq: NEEDED Status: Active Protocol: Document 05/17/21 13:55 AB (Rec: 05/17/21 15:14 AB [id number]) PT Summary Assessment and Plan Potential Rehabilitation Potential Fair Summary Impairments Pain,ROM,Strength,Balance, Coordination,Sensation,Tone, Cognition,Bed Mobility, Transfers,Gait,Activity Tolerance Progress Towards Goals Slow Progress due to Pain Assessment Summary pt requiring increase assistance this afternoon with c/o increase pain. pt also unable to tolerate much activity and only ambulated ~ 10 ft using FWW and presents with very unsteady shuffling gait requiring mod A x 2 and max cues. pt will require SNF rehab at this time. will continue to assess progress. Goals Bed Mobility Goal Standby Assistance Transfer Goal Standby Assistance,Front Wheeled Walker Gait Goal Standby Assistance,Front Wheel Walker Gait Distance 150 Other Goals up/down 4 steps R rail ascending SBA Days to Meet Goals 5 Frequency of Treatment Frequency Of Treatment Twice a Day Treatment Plan Physical Therapy Treatment Plan Bed Mobility Training,Transfer Training,Gait Training, Therapeutic Exercise,Balance Retraining,Post Op Education, Discharge Planning,Hot or Cold Pack,Neuromuscular Re-ed, Coordination Retraining,Manual Therapy Precautions Lumbar Precautions Log Roll,No Twisting,Limit Bending,Lifting Restriction of 10 lbs,Gait Belt above Incisional Area Recommendations To Nursing Amount of Assist Needed 2 Person Assist Discharge Recommendations PT Discharge Recommendations Home with 24/05 Assist Available,Home Health,SNF Rehab,Home vs SNF Transportation Needs at Discharge Private Vehicle
[2021-05-17] MEDS: SENNOSIDES 8.6 MG TABLET 17.2 MG PO (20:38)
[2021-05-18] VITALS (7 sets, daily range): BP systolic 115–147; BP diastolic 53–66; PULSE 77–104; RESP 14–22; TEMP 36.1–37.1; O2SAT 94–97
[2021-05-18] MEDS: OXYCODONE IR 5 MG TABLET 10 MG PO ×3 (00:52→08:45)
[2021-05-18] MEDS: clonazePAM 0.5 MG TABLET 2 MG PO ×2 (00:53→21:47)
[2021-05-18] MEDS: ACETAMINOPHEN 325 MG TABLET 650 MG PO ×2 (06:49→16:22)
[2021-05-18] MEDS: hydrOXYzine pamoate 25 MG CAPSULE PO ×2 (06:49→20:07)
[2021-05-18] MEDS: LOSARTAN 50 MG TABLET 100 MG PO (08:44)
[2021-05-18] MEDS: PRAMIPEXOLE 1 MG TABLET PO ×2 (08:44→20:07)
[2021-05-18] MEDS: DOCUSATE 100 MG CAPSULE PO ×2 (08:44→20:06)
--- NOTE | 2021-05-18 08:47 | PC.NURSE ---
Addendum entered by Elin Marquez R.N. 05/18/21 14:41: Patient requests to skip Mirapex 1mg, 1500 dose, feels it may be making her sleepy. Patient is resting with eyes closed, breathing unlabored, legs elevated in the chair. Addendum entered by Elin Marquez R.N. 05/18/21 13:59: Patient up to chair, BSC, restroom and working with PT this afternoon. Patient denies pain while at rest, reports pain increases with movement but patient is unable to keep eyes open when back to bed or up to chair. Patient currently resting with eyes closed in the chair. Breathing unlabored, RA. Dressing remains dry and intact. Call light in reach. Linens changed. Original Note: Patient a/o x 3. RA, 96%, lungs CTA, CMS intact, BT active x 4, awaiting void post mills removal. Will continue to monitor. Back dsg is intact, with minimal shadow drainage. Patient reports oxy 10 is managing pain at this time. Preparing to work with PT after breakfast. Call light in reach. Denies further needs at this time.
--- NOTE | 2021-05-18 09:50 | PM.PNPO.1 ---
Subjective Subjective Date Patient Seen: 05/18/21 Time Patient Seen: 09:51 Interval history: Patient is status post lumbar spine surgery. Patient is doing very well this morning. Very little pain this morning. Getting along well with physical therapy. Patient is ready to go home today. Exam Vital Signs (past 8 hours): - 05/18/21 05:41 05/18/21 06:27 05/18/21 07:30 Temperature 98.7 F 97.2 F L Pulse Rate 104 H 101 H 77 Respiratory Rate 22 20 15 Blood Pressure 145/66 H 147/63 H Pulse Oximetry 95 95 94 05/18/21 08:44 Temperature Pulse Rate 101 H Respiratory Rate Blood Pressure 147/63 H Pulse Oximetry Oxygen Delivery Method Room Air Oxygen Flow Rate 0 Narrative Exam Narrative: Patient's dressing is clean and dry. No sign of any strike through. Good range of motion of the lower extremities. Normal dorsiflexion and plantar flexion. Nontender to palpation to the posterior aspect of the calves. Objective Labs Result Diagrams: 05/17/21 06:15 [facility] Medical History Anxiety Arthritis Current every day smoker Depression HTN (hypertension) MICHELE (obstructive sleep apnea) Osteoarthritis RLS (restless legs syndrome) Surgical History H/O unilateral oophorectomy Hx of bilateral cataract extraction Hx of tonsillectomy S/P epidural steroid injection S/P hip replacement S/P knee replacement Social History household members: spouse Smoking Status: Current every day smoker alcohol intake: never Assessment & Plan Post-op Postoperative Procedures: Procedures Operation Date: 05/16/21 13:15 Actual Procedure Side Surgeon p L3-4, L4-5 TLIF Sascha Yusuf MD Postoperative status narrative: Patient doing well after lumbar spine surgery. Patient to be discharged home today. Postoperative plan: discharge Quality VTE Deep Vein Thrombosis/Pulmonary Embolism Present on Admission: No
[2021-05-18 12:00] LABS: COVID19 -Nasal RAPID Negative (Negative)
--- NOTE | 2021-05-18 12:42 | PT.IPTN ---
Current Diagnoses Anxiety disorder, unspecified (05/17/21) Restless legs syndrome (05/17/21) Spondylolisthesis, lumbar region (05/17/21) Radiculopathy, lumbar region (05/17/21) Postlaminectomy syndrome, not elsewhere classified (05/17/21) Surgery Performed Operation Date: 05/16/21 13:15 Actual Procedures p L3-4, L4-5 TLIF - Sascha Yusuf MD Physical Therapy Treatment Note M2 PT-IP Current Condition Start: 05/17/21 12:22 Freq: NEEDED Status: Active Protocol: Document 05/17/21 11:33 AB (Rec: 05/17/21 12:38 AB [id number]) Physical Therapy Current Condition Current Condition Evaluation Date 05/17/21 Treatment Diagnosis s/p L3-4, L5-S1 fusion/lami; difficulty in walking Onset Date 05/16/21 Precautions Lumbar Precautions Log Roll,No Twisting,Limit Bending,Lifting Restriction of 10 lbs,Gait Belt above Incisional Area M3 PT-IP Subjective Start: 05/17/21 12:22 Freq: NEEDED Status: Active Protocol: Document 05/18/21 12:23 LJ (Rec: 05/18/21 12:42 LJ [id number]) Subjective Physical Therapy Visit Type Type Treatment Note Visit Start Time 11:36 Visit Stop Time 11:52 Total Visit Minutes 16 Notes Pt on [facility] s[place] nursing upon arrival. Number of REGIONAL FACILITIES MANAGER Visits 1 Physical Therapy Visit Comments Patient Comments Checked on pt earlier this am but pt was too groggy to communicate. Later agreed to do PT Therapy Pain Assessment Pain When Pain Assessed At Rest Pain Present Pain Present Pain Reported M4 PT-IP Mobility and Gait Start: 05/17/21 12:22 Freq: NEEDED Status: Active Protocol: Document 05/18/21 12:23 LJ (Rec: 05/18/21 12:42 LJ [id number]) PT-Transfer Assessment Sit to and From Stand Sit to and from Stand 1 Person Assistance,Use of Upper Extremities Equipment Transfer Assistive Device Gait Belt,Front Wheeled Walker Orthotic/Prosthetic Devices or Brace: No Comments Mobility Comments Pt sitting on BSC with nursing . They used 2 person assist for bed transfer to BS. After pt finished on BS she stood CGA and min cueing for hand placement, standing tall, and keeping eyes open. Pt ambulated to chair with Catina x2 then Catina x1 (SERVICE DISMANTLER in room for back up) roughly 3 feet. Pt sat in chair to don brief then stood again and ambulated in room ~40'. Pt has tendency to keep eyes closed and therefore bump into things with FWW. Also, jerks the walker around when turning. She ambulated to chair and performed a controlled descent using the rails to lower herself down. When repositioning herself to bck of chair she was able to do it in one movement. She was left with SERVICE DISMANTLER in room. Gait Assessment Gait Gait Assistance Required: Minimum Assistance,Moderate Assistance,1 Person Assist,2 Person Assist Distance (Feet) 40 Able to Maintain Weight Bearing Status Yes During Gait Assistive Devices Assistive Device Gait Belt,Front Wheeled Walker Orthotic/Prosthetic Devices or Brace: No Gait Deviations General Gait Pattern Ataxic,Decreased Stride Length ,Decreased Feet Clearance,Step -to Gait Factors Limiting Gait Function Factors Limiting Gait Function Decreased Activity Tolerance, Decreased Strength,Difficulty Following Directions,Limited Range of Motion,Pain,Poor Balance,Poor Safety Awareness Comments Gait Comments see mobility M5 PT-IP Objective Assessments Start: 05/17/21 12:22 Freq: NEEDED Status: Active Protocol: Document 05/17/21 11:33 AB (Rec: 05/17/21 12:38 AB [id number]) Orientation Orientation/Cognition Level of Alertness Alert Orientation Name,Place,Situation Safety Awareness Decreased Safety Awareness Memory Description Short Term Impaired Gross Range of Motion Lower Extremity ROM Assessment Within Functional Limits Strength Lower Extremity Strength Assessment Bilaterally Impaired Hip 3+/5 Knee 4-/5 Coordination Assessment Gross Coordination Gross Coordination WNL Sensation Assessment Sensation Gross Sensation WNL Muscle Tone Muscle Tone WNL Yes M6 PT-IP Treatment Start: 05/17/21 12:22 Freq: NEEDED Status: Active Protocol: Document 05/18/21 12:23 ALVINA (Rec: 05/18/21 12:42 LJ [id number]) Physical Therapy Treatment Education Education Provided Precautions,Safety M7 PT-IP Assessment and Plan Start: 05/17/21 12:22 Freq: NEEDED Status: Active Protocol: Document 05/18/21 12:23 ALVINA (Rec: 05/18/21 12:42 LJ [id number]) PT Summary Assessment and Plan Potential Rehabilitation Potential Fair Status of Condition at Evaluation Evolving Summary Impairments Pain,ROM,Strength,Balance, Coordination,Sensation,Tone, Cognition,Bed Mobility, Transfers,Gait,Activity Tolerance Progress Towards Goals Slow Progress due to Pain Assessment Summary Pt very groggy this treatment but able to improve mobility to perform three transfers and ambulate 40 feet in room. She is unable to perform stairs at this time but will try next treatment this afternoon. She has unsteady gait and has tendency to jerk the walker around, close eyes and run into objects. Goals Bed Mobility Goal Standby Assistance Transfer Goal Standby Assistance,Front Wheeled Walker Gait Goal Standby Assistance,Front Wheel Walker Gait Distance 150 Other Goals up/down 4 steps R rail ascending SBA Days to Meet Goals 5 Frequency of Treatment Frequency Of Treatment Twice a Day Treatment Plan Physical Therapy Treatment Plan Bed Mobility Training,Transfer Training,Gait Training, Therapeutic Exercise,Balance Retraining,Post Op Education, Discharge Planning,Hot or Cold Pack,Neuromuscular Re-ed, Coordination Retraining,Manual Therapy Precautions Lumbar Precautions Log Roll,No Twisting,Limit Bending,Lifting Restriction of 10 lbs,Gait Belt above Incisional Area Recommendations To Nursing Amount of Assist Needed 2 Person Assist Discharge Recommendations PT Discharge Recommendations Home with 24/ Assist Available,SNF Rehab Transportation Needs at Discharge Private Vehicle
--- NOTE | 2021-05-18 13:36 | PT.IPTN ---
Current Diagnoses Anxiety disorder, unspecified (05/17/21) Restless legs syndrome (05/17/21) Spondylolisthesis, lumbar region (05/17/21) Radiculopathy, lumbar region (05/17/21) Postlaminectomy syndrome, not elsewhere classified (05/17/21) Surgery Performed Operation Date: 05/16/21 13:15 Actual Procedures p L3-4, L4-5 TLIF - Sascha Yusuf MD Physical Therapy Treatment Note M2 PT-IP Current Condition Start: 05/17/21 12:22 Freq: NEEDED Status: Active Protocol: Document 05/17/21 11:33 AB (Rec: 05/17/21 12:38 AB [id number]) Physical Therapy Current Condition Current Condition Evaluation Date 05/17/21 Treatment Diagnosis s/p L3-4, L5-S1 fusion/lami; difficulty in walking Onset Date 05/16/21 Precautions Lumbar Precautions Log Roll,No Twisting,Limit Bending,Lifting Restriction of 10 lbs,Gait Belt above Incisional Area M3 PT-IP Subjective Start: 05/17/21 12:22 Freq: NEEDED Status: Active Protocol: Document 05/18/21 13:23 ALVINA (Rec: 05/18/21 13:36 LJ [id number]) Subjective Physical Therapy Visit Type Type Treatment Note Visit Start Time 13:01 Visit Stop Time 13:23 Total Visit Minutes 22 Notes Pt in room for therapy Number of CASINO RUNNER Visits 1 Physical Therapy Visit Comments Patient Comments Pt willing to get up to walk to toilet Therapy Pain Assessment Pain When Pain Assessed At Rest Pain Present Pain Present Denied Pain M4 PT-IP Mobility and Gait Start: 05/17/21 12:22 Freq: NEEDED Status: Active Protocol: Document 05/18/21 13:23 ALVINA (Rec: 05/18/21 13:36 LJ [id number]) PT-Transfer Assessment Sit to and From Stand Sit to and from Stand 1 Person Assistance,Use of Upper Extremities Equipment Transfer Assistive Device Gait Belt,Front Wheeled Walker Orthotic/Prosthetic Devices or Brace: No Transfers Transfer Destination Chair,Toilet Transfer Technique Stand Step Pivot Transfer Ability Level of Assist Contact Guard Assistance,1 Person Assistance,Use of Upper Extremities Comments Mobility Comments Pt sitting in chair still groggy but more alert. Pt (surgical nurse) in room for assist. Pt CGA for transfer sit<>stand to/from chair and toilet. Pt ambulated to toilet CGA x1 with CGA and handrail to sit and stand using toilet. Pt ambulated to sink requiring cues to avoid pushing FWW into wall. Pt briefly washed hands and ambulated back to chair jerking FWW during turns. Pt sat in chair CGA and repositioned herself without assist. Pt inquiring about pn medication. She reported no pain at rest prior to going to the bathroom and did not c/o pain after ambulation. Gait Assessment Gait Gait Assistance Required: Contact Guard Assist,1 Person Assist Distance (Feet) 25 Assistive Devices Assistive Device Gait Belt,Front Wheeled Walker Orthotic/Prosthetic Devices or Brace: No Gait Deviations General Gait Pattern Ataxic,Decreased Stride Length ,Decreased Feet Clearance,Step -to Gait Factors Limiting Gait Function Factors Limiting Gait Function Decreased Activity Tolerance, Decreased Strength,Difficulty Following Directions,Limited Range of Motion,Pain,Poor Balance,Poor Safety Awareness Comments Gait Comments see mobility M5 PT-IP Objective Assessments Start: 05/17/21 12:22 Freq: NEEDED Status: Active Protocol: Document 05/17/21 11:33 AB (Rec: 05/17/21 12:38 AB [id number]) Orientation Orientation/Cognition Level of Alertness Alert Orientation Name,Place,Situation Safety Awareness Decreased Safety Awareness Memory Description Short Term Impaired Gross Range of Motion Lower Extremity ROM Assessment Within Functional Limits Strength Lower Extremity Strength Assessment Bilaterally Impaired Hip 3+/5 Knee 4-/5 Coordination Assessment Gross Coordination Gross Coordination WNL Sensation Assessment Sensation Gross Sensation WNL Muscle Tone Muscle Tone WNL Yes M6 PT-IP Treatment Start: 05/17/21 12:22 Freq: NEEDED Status: Active Protocol: Document 05/18/21 13:23 ALVINA (Rec: 05/18/21 13:36 [id number]) Physical Therapy Treatment Education Education Provided Precautions,Safety M7 PT-IP Assessment and Plan Start: 05/17/21 12:22 Freq: NEEDED Status: Active Protocol: Document 05/18/21 13:23 ALVINA (Rec: 05/18/21 13:36 LJ [id number]) PT Summary Assessment and Plan Potential Rehabilitation Potential Fair Status of Condition at Evaluation Evolving Summary Impairments Pain,ROM,Strength,Balance, Coordination,Sensation,Tone, Cognition,Bed Mobility, Transfers,Gait,Activity Tolerance Progress Towards Goals Slow Progress due to Activity Tolerance Assessment Summary Pt improved alertness and with good pain control this session. Still needing cues to avoid running into obstacles and using the walker in jerking fashion but had no c/o pain during movement. Needing cues to avoid twisting while standing at the sink to wash hands. Pt will benefit from stay at SNF to improve mobility, activity tolerance, and independence. Pt left in room with and all needs within reach. Goals Bed Mobility Goal Standby Assistance Transfer Goal Standby Assistance,Front Wheeled Walker Gait Goal Standby Assistance,Front Wheel Walker Gait Distance 150 Other Goals up/down 4 steps R rail ascending SBA Days to Meet Goals 5 Frequency of Treatment Frequency Of Treatment Twice a Day Treatment Plan Physical Therapy Treatment Plan Bed Mobility Training,Transfer Training,Gait Training, Therapeutic Exercise,Balance Retraining,Post Op Education, Discharge Planning,Hot or Cold Pack,Neuromuscular Re-ed, Coordination Retraining,Manual Therapy Precautions Lumbar Precautions Log Roll,No Twisting,Limit Bending,Lifting Restriction of 10 lbs,Gait Belt above Incisional Area Recommendations To Nursing Amount of Assist Needed 1 Person Assist Discharge Recommendations PT Discharge Recommendations SNF Rehab
--- NOTE | 2021-05-18 16:57 | PC.NURSE ---
Addendum entered by Susu Garcia R.N. 05/18/21 22:18: Pt now calls out from room for someone to help. Requests assistance to toilet. Is calm, cooperative and follows commands appropriately. Commode use and then returns to bed as per request with staff x 2 to assist. Positioned onto left side with pillow between legs. Ice to back. Quickly to sleeping state with eyes closed and without signs of distress or discomfort. Bed alarm in place. Awaiting return phone call from spouse where message was left on cell phone voice mail as home land line rings busy. Plan to have spouse speak to pt as per pt request and to request spouse bring pt's prescribed and ordered adderall from home to administer to pt as ordered. Pt was informed message was left for spouse to return phone call. Addendum entered by Susu Garcia R.N. 05/18/21 21:56: Administered clonazepam as per emar for pt's agitation, tearfulness, and expressions of frustration and dissatisfaction. Pt is insistent nursing staff knew pt wanted to be awoken for MD rounds and staff did not do this. Pt does not listen to nor accept staff explanations. Chair alarm set. Pt's lower extremities elevated, soft lighting in room, sheet for warmth, and allowed to rest and calm self. Frequent monitoring by staff. Addendum entered by Susu Garcia R.N. 05/18/21 21:37: Pt again awakens and begins rant again about not seeing surgeon postoperatively. Requests to see physical therapy and again was informed by RESEARCH INVESTIGATOR this staff is not currently available. Pt escalates with raised voice and expletives. Multiple staff members attend to pt to attempt to provide explanations addressing same concerns as previously noted in prior note. Staff exit room when pt continues rant without listening to or accepting staff explanations. Offered pt pain medications which pt declines. Pt stands up independently and begins to move about room with walker. More stable than previously. Security paged to room and stands by. Pt desires to make phone calls and calmly sits down in recliner with telephone. Monitoring by staff from hallway giving pt space as it proves futile to engage pt in conversation. Explanations and discussions with staff just escalate pt. Offered toileting and pt declines. This proposal writer phoned pt's spouse as listed on demographic sheet as pt expresses desire to speak with spouse. No answer on spouse's cell phone so message left for spouse to please call hospital when this message is received. Pt now calmly and quietly sitting up in recliner with eyes closed. Lights on in room and careful monitoring by staff. Addendum entered by Susu Garcia R.N. 05/18/21 20:11: Pt awakens from sleep and staff responds to pt's call light. Pt is angry and speaking loudly to this proposal writer using expletives to state frustration surgeon has not yet seen pt. Informed pt one of Dr. Ysuuf's associates did see patient today. Informed pt physician assistants and/or orthopedic practice associates often see patients in hospital postoperatively. Pt continues to vent in loud expletive language frustration and then proceeds to move on with insurance coverage and desires to know if insurance will pay for this hospitalization. Informed pt this proposal writer cannot address this concern, but this can be addressed by mission planner in the morning. Pt continues to use expletives to rant and rave. Toileted pt on commode and changed brief. Back to recliner where pt has been resting quietly and comfortably prior to verbal outburst. Declines to wear scd's. Administered vistaril to manage agitation and mirapex to manage pt's restless legs. Now calmly and quietly resting in recliner with eyes closed. Quiet. Declines offer for warm blanket. Chair alarm in place and call light within pt's reach. Addendum entered by Susu Garcia R.N. 05/18/21 19:15: Rouses independently but quickly returns to sleep in recliner. No signs of distress or discomfort. Noted last void @ noon so will monitor for void and/or bladder scan within next hour. Original Note: Pt lying in bed moaning and restless. Begins to cry when this proposal writer approaches and introduces self. Inquired of pt if experiencing pain and pt affirms stating 8/10 on pain scale. Noted pt has spilled smoothie in bed and this has saturated sheets. With three staff members to assist, encouraged pt to move to commode to attempt to void. Pt does not void but crying ceases and pt is able to engage in conversation. Speech is thick sounding and pt is sedate as per dayshift report. Moved pt to chair as does report more comfortable in chair versus bed. Shadowy drainage to coversite dressing central lower back outlined. Drainage greater L > R aspect of dressing. Pt admits to full sensation to BL LE's. Requires reinforcement and instruction for walker use to stand tall, open eyes and head up. Chair alarm placed on pt while up in chair with BL LE's elevated. Ice to back. Left pt to obtain pain medications and when this proposal writer returned to pt's room, pt was asleep and snoring. Wakened pt to administer tylenol but holding narcotics at this time.
[2021-05-18] MEDS: SODIUM CHLORIDE 0.9% FLUSH 10 ML IV (20:07)
[2021-05-18] MEDS: SENNOSIDES 8.6 MG TABLET 17.2 MG PO (20:07)
[2021-05-19] MEDS: OXYCODONE IR 5 MG TABLET 10 MG PO ×3 (00:13→08:19)
[2021-05-19 00:45] VITALS: BP 123/57; PULSE 90; RESP 20; TEMP 36.4; O2SAT 96
[2021-05-19] MEDS: SODIUM CHLORIDE 0.9% FLUSH 10 ML IV ×2 (04:53→08:20)
[2021-05-19 05:20] VITALS: BP 125/79; PULSE 76; RESP 18; TEMP 36.3; O2SAT 95
--- NOTE | 2021-05-19 06:05 | PC.NURSE ---
Patient was calling out for pain medication at 0435. This RN came in to assess patients pain and patient was crying saying she needed something right now. Patient was offered the PO medication but declined and said she needed something that would work faster. Patient was offered the IV Diluadid. This RN flushed the IV and it was leaking, the dressing was removed and the site looked intact with no signs of compromise noted. This RN tried to reposition the IV but it was still leaking with no return. IV site was removed at 0440 and the patient then requested PO medication and did not want this RN to place a new IV at this time. Patient will DC today, 05/19, to [facility], coordinator was notified. Patient resting in bed, with call light within reach and no other complaints at this time.
[2021-05-19 08:00] VITALS: BP 129/111; PULSE 90; RESP 14; TEMP 36; O2SAT 92
[2021-05-19] MEDS: LOSARTAN 50 MG TABLET 100 MG PO (08:18)
[2021-05-19] MEDS: DOCUSATE 100 MG CAPSULE PO (08:18)
[2021-05-19] MEDS: PRAMIPEXOLE 1 MG TABLET PO (08:19)
[2021-05-19] MEDS: MAGNESIUM HYDROXIDE 30 ML UDC PO (08:24)
--- NOTE | 2021-05-19 09:00 | OT.IP.TRT ---
Current Diagnoses Anxiety disorder, unspecified (05/17/21) Restless legs syndrome (05/17/21) Spondylolisthesis, lumbar region (05/17/21) Radiculopathy, lumbar region (05/17/21) Postlaminectomy syndrome, not elsewhere classified (05/17/21) Surgery Performed Operation Date: 05/16/21 13:15 Actual Procedures p L3-4, L4-5 TLIF - Sascha Yusuf MD Occupational Therapy Treatment Note M2 OT-IP Current Condition Start: 05/17/21 14:27 Freq: Status: Active Protocol: Document 05/17/21 14:27 [facility] (Rec: 05/17/21 14:51 [facility] [id number]) Occupational Therapy Current Condition Current Condition Evaluation Date 05/17/21 Treatment Diagnosis S/p L3-4, L4-5 TLIF, decreased mobility Diagnosis Onset Date 05/16/21 Post Operative Precautions Lumbar Precautions Log Roll,No Twisting,Limit Bending,Lifting Restriction of 10 lbs,Gait Belt above Incisional Area M3 OT- IP Subjective and Pain Start: 05/17/21 14:27 Freq: Status: Active Protocol: Document 05/19/21 10:32 [facility] (Rec: 05/19/21 10:55 [facility] [id number]) OT- Subjective Occupational Therapy Visit Type Type Treatment Note Visit Start Time 09:00 Visit Stop Time 09:26 Total Visit Minutes 26 Occupational Therapy Visit Comments Patient Comments Pt wanting to use the bathroom . Patient/Caregiver Goals Pt realizes that she will be going to skilled rehab as not able to care for herself and that her would only be home for 2-3 days as he still works. Prior pt was saying that her would be home for 1-2 weeks. OT Pain Assessment Pain When Pain Assessed During Mobility Pain Present Pain Present Pain Reported Location back Intensity 7 Scale Used Numeric (0 - 10) M4 OT- IP ADL's Start: 05/17/21 14:27 Freq: Status: Active Protocol: Document 05/19/21 10:32 [facility] (Rec: 05/19/21 10:55 [facility] [id number]) OT ARW-Dsup-Ddxexee Comments OT Self-Feeding Comments NOt at meal time. OT ADL-Grooming General Evaluation Areas Needing Assistance Retrieving/Set-up of Grooming Items Comments OT Grooming Comments Pt not wanting to try to stand for grooming needs as in too much pain, therefore grooming completed while seated. OT ADL-Oral Care General Eval Oral Care Ability Independent OT ADL-Dressing General Eval Lower Body Dressing Ability Maximum Assistance Comments OT Dressing Comments Pt needing assist to help shirley /doff her brief while standing due to decreased balance. Pt still MAX A X for all LB dressing needs, pt would benefit from LB dressing equipment. OT ADL-Toileting General Evaluation Toileting Ability Maximum Assistance Areas Needing Assistance Manage Clothing,Perform Perineal Hygiene Comments OT Toileting Comments Pt able to wipe from the front but would be dependent to wipe from the back as prior had difficulty to do her hygiene needs. OT ADL-Bathing Bathing Type Bathing Type Sponge Bath Comments OT Bathing Comments Pt able to assist to wash her under her arms and chest and to tired to do any more at this time. M6 OT- IP Functional Cognition Start: 05/17/21 14:27 Freq: Status: Active Protocol: Document 05/19/21 10:32 [facility] (Rec: 05/19/21 10:55 [facility] [id number]) Cognitive Factors Limiting Selfcare Function Cognitive Ability Level of Alertness Alert,Drowsy Patient Orientation Name,Place,Situation Attention Span Ability Capable of Focused Attention, Capable of Sustained Attention Ability to Follow Commands Able to Follow One Step Commands Safety Awareness Decreased Ability to Apply Precautions,Underestimates Need for Assistance Cognitive Comments Cognitive Assessment Comments Pt drowsy and needing step by step commmands for safety awareness, hand placement and to incorportae her back precautions during ADl and functional mobility needs. M7 OT- IP Mobility and Balance Start: 05/17/21 14:27 Freq: Status: Active Protocol: Document 05/19/21 10:32 [facility] (Rec: 05/19/21 10:55 [facility] [id number]) OT- Bed Mobility Assessment Supine to Sit Supine to Sit Assist Standby Assistance,Bedrails OT-Transfer Assessment Sit to and From Stand Sit to and from Stand Minimal Assistance,Moderate Assistance Transfers Transfer Ability Minimal Assistance Technique Transfer Destination Bed,Chair,Toilet Transfer Technique Stand Step Pivot Devices Transfer Assistive Devices Gait Belt,Front Wheeled Walker Comments Mobility Comments VC for log rolling with increased time. MODA to stand as pt trying to pull to FWW to stand , versus push up from the bed. Pt needing cues to place her hands appropriate on the FWW. Cues to back up to the toilet all the way before sitting. Pt needing assist FALGUNI to help lower her down to the toilet and recliner. OT- Gait Assessment Comments Gait Ability Comments FALGUNI with FWW. OT- Balance Assessment Sitting Balance and Reactions Static Sitting Balance Ability Good Dynamic Sitting Balance Ability Fair Standing Balance and Reactions Static Standing Balance Ability Fair Comments Other Balance Tests/Deviations/Treatment Pt unsteady on her feet and : needing to hold to FWW or grab bar especially when trying to do brief management needs. M8 OT- IP Objective Assessments Start: 05/17/21 14:27 Freq: Status: Active Protocol: Document 05/17/21 14:27 [facility] (Rec: 05/17/21 14:51 [facility] [id number]) OT Gross Range of Motion Upper Extremity Range of Motion Assessment Within Functional Limits OT Strength Upper Extremity Strength Assessment Within Functional Limits M9 OT- IP Assessment and Plan Start: 05/17/21 14:27 Freq: Status: Active Protocol: Document 05/19/21 10:32 [facility] (Rec: 05/19/21 10:55 [facility] [id number]) OT Summary Assessment and Plan Potential Rehabilitation Potential Good Analytic Complexity at Evaluation Low Summary OT Impairments Pain,Strength,Balance, Functional Cognition, Functional Mobility,Grooming, Dressing,Toileting,Bathing, Toilet Transfers,Shower Transfers,Activity Tolerance Progress Towards Goals Slow Progress due to Pain,Slow Progress due to Activity Tolerance,Slow Progress due to Cognition Assessment Summary Pt to be going to skilled rehab as pt now states her will only be home for 2 days. Pt still very unsteady on her feet, needing continuous cues for safety awareness for FWW, transitions , and hand placement on FWW and to reach back before sitting down. Pt will benefit from skilled rehab prior to going home. Goals Grooming Goal Independent Dressing Goal Independent Toileting Goal Independent Bathing Goal Independent Toilet Transfer Goal Independent Shower Transfer Goal Independent Patient/Caregiver Education Goal Demonstrate Post-Op Precautions,Caregiver Independent Assisting Patient Days to Meet Goals 15 Frequency of Treatment Frequency Of Treatment Once a Day Treatment Plan OT Treatment Plan ADL Training,Functional Cognition Training,Functional Mobility,Patient/Family Education,Discharge Planning Discharge Recommendations OT Discharge Recommendations SNF Rehab Transportation Needs at Discharge Private Vehicle,Wheelchair/ Cabulance
[2021-05-19 09:26] VITALS: BP 112/63; PULSE 88; RESP 14; TEMP 36.2; O2SAT 92
--- NOTE | 2021-05-19 09:42 | PC.NURSE ---
Addendum entered by Billie Albrecht R.N. 05/19/21 11:28: Report called to SNF, left around 1110. Original Note: Assess- Patient is alert and oriented x3 but forgetful. Given 10mg of oxycodone and helpful for discomfort, patient falls asleep and then forgets that she had the pain medication. Worked with OT for a bit. Dressing is cdi with old small amount of dried drainage. Patient denies numbness and tingling to her lower extremities. Going to [facility] at 1100am
--- NOTE | 2021-05-19 10:05 | P.DS_ITS ---
History of Present Illness History of Present Illness Date Patient Seen: 05/19/21 Time Patient Seen: 07:30 Chief complaint: OPB Narrative: Patient states her pain is 8 to 9/10. Denies fever or chills. No nausea or vomiting. Discharge Providers Provider Date of admission: 05/17/21 11:21 Discharge Date: 05/19/21 Primary care physician: Iván Howard MD Consults: 05/16/21 11:46 Consult to Respiratory Therapy Evaluate & Treat Comment: Physician Instructions: Evaluate and treat 05/16/21 19:29 Consult to Occupational Therapy Evaluate & Treat Comment: Physician Instructions: Evaluate and treat Consult to Physical Therapy Evaluate & Treat Comment: Physician Instructions: Evaluate and Treat Discharge provider: Oscar Pineda PA-C Summary Hospital Course Discharge Diagnosis: 1. L3-4, L4-5 spinal stenosis 2. Lumbar spondylosis with radiculopathy 3. Post laminectomy syndrome 4. BMI 37.6 Hospital Course: [address] [id number] Note Patient: Mary Ellen Rosado CMR#: [id number]: [id number]:[id number]/Sex: 75 / F Date of Service: 05/16/21Provider: Sascha Yusuf MD Operative Date/Time/Diagnoses Date of procedure: 05/16/21 Time of procedure: 14:00 Pre-op diagnosis: 1. L3-4, L4-5 spinal stenosis 2. Lumbar spondylosis with radiculopathy 3. Post laminectomy syndrome Post-op diagnosis: same Procedure & Clinicians Procedure: 1. L3-4, L4-5 Postero-lateral and posterior interbody fusion 2. L3-4, L4-5 interbody cage placement. 3. L3-4, L4-5 decompressive laminectomy with bilateral facetecomies 4. L3-4, L4-5 Posterior segmental instrumentation 5. [place] of bone marrow from iliac crest 6. Utilization of microsurgical technique and operating microscope Same procedure as scheduled: Yes Indications: Patient has been having chronic back pain and worsening lumbar radiculopathy. Patient failed multiple conservative management with worsening pain weakness and numbness in her lower extremity. Patient has been having difficulty performing activity of daily living. After discussing risks benefits of treatment options, patient elected proceed with surgery. Surgeon: Sascha Yusuf It Systems Analyst Consultant: Ion Lora Click Yes if Unassisted: No Anesthesia Type: General Operative Notes Closure Type: primary Specimen(s): none sent Prosthetic devices, grafts, tissues, transplants, or devices: Globus revolve screws, Rise cages Applied: catheter Estimated Blood Loss (mL): 200 Blood products transfused: none Patient admitted to the hospital for the above-mentioned procedure. Patient consented to the same. Patient back in her room recovering well as in stable condition. At time of discharge patient needs more assistance than her come provided home. Patient will be discharged to detention facility for further rehab. Status at Discharge Cognitive/behavioral status at discharge: at baseline, oriented Functional status at discharge: uses cane/walker Overall status at discharge: patient is progressing back to baseline Time Spent with Patient Time spent: Less than 30 minutes Exam Vital Signs (past 8 hours): - 05/19/21 05:20 05/19/21 08:00 05/19/21 09:26 Temperature 97.3 F L 96.8 F L 97.1 F L Pulse Rate 76 90 88 Respiratory Rate 18 14 14 Blood Pressure 125/79 129/111 H 112/63 Pulse Oximetry 95 92 92 Oxygen Delivery Method Room Air Oxygen Flow Rate 0 Narrative Exam Narrative: 75-year-old female resting comfortably in bed in no apparent distress. Dressing is clean, dry and intact. Motor functions intact bilateral lower extremity. Sensation grossly intact bilateral lower extremities. Objective Labs Result Diagrams: 05/17/21 06:15 Labs: Laboratory Results - last 24 hr 05/18/21 11:30 SARS-CoV-2 (PCR) Negative PFSH Medical History Anxiety Arthritis Current every day smoker Depression HTN (hypertension) MICHELE (obstructive sleep apnea) Osteoarthritis RLS (restless legs syndrome) Surgical History H/O unilateral oophorectomy Hx of bilateral cataract extraction Hx of tonsillectomy S/P epidural steroid injection S/P hip replacement S/P knee replacement Social History household members: spouse Smoking Status: Current every day smoker alcohol intake: never Discharge Plan Discharge Plan Patient Disposition: SNF Transfer to: [facility] Under care of provider: Dr. Yusuf Transportation: Facility vehicle I certify the postop hospital detention care is medically necessary on a continuing basis for any conditions for which he/ she received care during this hospitalization.: Yes The receiving facility has agreed to accept transfer and provide medical treatment.: Yes Discharge orders & Medications Prescriptions: New oxycodone 5 mg Tablet 10 mg PO Q3HR PRN (Reason: Pain, Severe (7-10)) Qty: 60 RF: 0 hydroxyzine pamoate 25 mg Capsule 25 mg PO Q4HR PRN (Reason: Nausea And Vomiting) Qty: 60 RF: 0 Dextroamphetamine-Amphetamine [Adderall] 20 mg PO BID Qty: 30 RF: 0 clonazepam 0.5 mg Tablet 2 mg PO DAILY PRN (Reason: Sleep) Qty: 20 RF: 0 Continued aspirin 81 mg Tablet,Delayed Release (Dr/Ec) 81 mg PO DAILY RF: 0 ibuprofen [Motrin IB] 200 mg capsule 800 mg PO TID-QID PRN (Reason: Pain) RF: 0 losartan 100 mg tablet 100 mg PO DAILY RF: 0 pramipexole 1 mg tablet 1 mg PO TID RF: 0 Discontinued clonazepam 1 mg tablet 2 mg PO DAILY PRN (Reason: Sleep) RF: 0 dextroamphetamine-amphetamine [Adderall] 20 mg tablet 20 mg PO BID RF: 0 Follow up/Referrals: Sascha Yusuf MD [Physician] - (2 wks) Iván Howard MD [Primary Care Provider] - Discharge Health Status Multidrug resistant organism: No MDRO Diet/Activity/Treatments Diet: Diet as Tolerated Activity: Limit bending, swimming, lifting Cold/Heat Therapy: ice as needed Skin/Wound/Dressing Care Report to your healthcare provider any signs of infection, such as:: chills, fever, night sweats, increased pain, unusual drainage and unusual redness Dressing: Patient will keep the dressings clean and dry Special Rehabilitation Services Reason for rehabilitation: Post-operative therapy Rehab type: Physical therapy and Occupational therapy Visit Report/Discharge Packet Instructions: DI for Prescription Opioid Use, DI for Transforaminal Lumbar Interbody Fusion Stand Alone Forms: Surgery Discharge Discharge Data Primary Care Provider: Iván Howard Attending Provider: Sascha Yusuf Quality VTE Deep Vein Thrombosis/Pulmonary Embolism Present on Admission: No
--- NOTE | 2021-05-19 11:09 | PT.IPTN ---
Current Diagnoses Anxiety disorder, unspecified (05/17/21) Restless legs syndrome (05/17/21) Spondylolisthesis, lumbar region (05/17/21) Radiculopathy, lumbar region (05/17/21) Postlaminectomy syndrome, not elsewhere classified (05/17/21) Surgery Performed Operation Date: 05/16/21 13:15 Actual Procedures p L3-4, L4-5 TLIF - Sascha Yusuf MD Physical Therapy Treatment Note M2 PT-IP Current Condition Start: 05/17/21 12:22 Freq: NEEDED Status: Discharge Protocol: Document 05/17/21 11:33 AB (Rec: 05/17/21 12:[address] 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 Physical Therapy Visit Comments Patient Comments She does not know why she is so groggy, not like this at home Patient Goals get better Therapy Pain Assessment Pain When Pain Assessed During Mobility Pain Present Pain Present Pain Reported Location back Intensity 6 Scale Used Numeric (0 - 10) Description Aching,Sharp,With Movement Pain Behaviors Facial Grimacing,Guarding, Wincing Pain Management Techniques Apply Cold,Re-positioning M4 PT-IP Mobility and Gait Start: 05/17/21 12:22 Freq: NEEDED Status: Discharge Protocol: Document 05/19/21 11:09 DLM (Rec: 05/19/21 12:36 DL [id number]) PT-Bed Mobility Assessment Rolling Type of Rolling Log Rolling Level of Assist Minimal Assistance Supine to Sit Supine to Sit Minimal Assistance,Bedrails Sit to Supine Sit to Supine Minimal Assistance,Moderate Assistance,Bedrails Scooting Scooting to Edge of Bed Standby Assistance PT-Transfer Assessment Sit to and From Stand Sit to and from Stand Minimal Assistance,Use of Upper Extremities Equipment Transfer Assistive Device Gait Belt,Front Wheeled Walker Transfers Transfer Destination Bed,Chair Transfer Technique Stand Step Pivot Transfer Ability Level of Assist Contact Guard Assistance, Minimal Assistance,Use of Upper Extremities Comments Mobility Comments Pt sitting up in recliner at the start of this visit with eyes closed, she arouses easily to voice but reports feeling very groggy. Gait Assessment Gait Gait Assistance Required: Contact Guard Assist,Minimum Assistance Distance (Feet) 20 Assistive Devices Assistive Device Gait Belt,Front Wheeled Walker Gait Deviations General Gait Pattern Decreased Stride Length,Flexed Trunk Factors Limiting Gait Function Factors Limiting Gait Function Decreased Activity Tolerance, Decreased Strength,Pain Comments Gait Comments heavy reliance on UE's when using the FWW and during sit- stand, sit-stand is very painful for her PT-Balance Assessment Sitting Balance and Reactions Static Sitting Balance Ability Good Dynamic Sitting Balance Ability Fair Standing Balance and Reactions Static Standing Balance Ability Fair Dynamic Standing Balance Ability Fair Device Used FWW Comments Other Balance Tests/Deviations/Treatment back pain limits her balance : M5 PT-IP Objective Assessments Start: 05/17/21 12:22 Freq: NEEDED Status: Discharge Protocol: Document 05/17/21 11:33 AB (Rec: 05/17/21 12:38 AB [id number]) Orientation Orientation/Cognition Level of Alertness Alert Orientation Name,Place,Situation Safety Awareness Decreased Safety Awareness Memory Description Short Term Impaired Gross Range of Motion Lower Extremity ROM Assessment Within Functional Limits Strength Lower Extremity Strength Assessment Bilaterally Impaired Hip 3+/5 Knee 4-/5 Coordination Assessment Gross Coordination Gross Coordination WNL Sensation Assessment Sensation Gross Sensation WNL Muscle Tone Muscle Tone WNL Yes M6 PT-IP Treatment Start: 05/17/21 12:22 Freq: NEEDED Status: Discharge Protocol: Document 05/19/21 11:09 DLM (Rec: 05/19/21 12:36 DLM [id number]) Physical Therapy Treatment Education Education Provided Precautions,Safety M7 PT-IP Assessment and Plan Start: 05/17/21 12:22 Freq: NEEDED Status: Discharge Protocol: Document 05/19/21 11:09 DLM (Rec: 05/19/21 12:36 DLM [id number]) PT Summary Assessment and Plan Summary Impairments Pain,ROM,Strength,Balance, Cognition,Bed Mobility, Transfers,Gait,Activity Tolerance Progress Towards Goals Slow Progress due to Pain,Slow Progress due to Activity Tolerance Assessment Summary Mrs Rosado continue to feel groggy. She reports no back pain when sitting up in the recliner. She has increased pain with any functional movement. She tolerates short distances of gait in her room with FWW with heavy use of UE' s on the FWW. Pt moving the FWW better on her own today around the room and did not run into anything. Her progress is very slow at this time. Goals Bed Mobility Goal Standby Assistance Transfer Goal Standby Assistance,Front Wheeled Walker Gait Goal Standby Assistance,Front Wheel Walker Gait Distance 150 Other Goals up/down 4 steps R rail ascending SBA Days to Meet Goals 4 Frequency of Treatment Frequency Of Treatment Twice a Day Treatment Plan Physical Therapy Treatment Plan Bed Mobility Training,Transfer Training,Gait Training, Therapeutic Exercise,Balance Retraining,Post Op Education, Discharge Planning,Hot or Cold Pack,Neuromuscular Re-ed Recommendations To Nursing Amount of Assist Needed 1 Person Assist Discharge Recommendations PT Discharge Recommendations SNF Rehab Transportation Needs at Discharge Wheelchair/Cabulance
== END 2021-05-19 11:10 ==
LOC: OR 05-18 09:50 → AC 05-18 09:50
PROVIDERS: Admitting Provider Orthopaedic Surgery Orthopaedic Surgery of the Spine; Family Provider Family Medicine; PCP Family Medicine; Referring Provider Orthopaedic Surgery Orthopaedic Surgery of the Spine; Visit Provider Orthopaedic Surgery Orthopaedic Surgery of the Spine
PROC: (CPT 22634; principal; 2021-05-16 13:15)
DX: M96.1 Postlaminectomy syndrome, not elsewhere classified (principal); M54.16 Radiculopathy, lumbar region; M43.16 Spondylolisthesis, lumbar region; G25.81 Restless legs syndrome; F41.9 Anxiety disorder, unspecified; M48.061 Spinal stenosis, lumbar region without neurogenic claudication; Z20.822 Contact with and (suspected) exposure to COVID-19; F17.210 Nicotine dependence, cigarettes, uncomplicated; G47.33 Obstructive sleep apnea (adult) (pediatric); I10 Essential (primary) hypertension
CPT/HCPCS: 22634; 63047; 22853 ×2; 22842; 22633; 63048; 20939; 36415; 72100; 76000; 85014; 85018; 87635; 97116; 97162; 97165; 97530; 97535; C1776; C9803; G0378; C9290; J0330; J0690; J1100; J1170; J2250; J2405; J2704; J3010; J3410